=== PATIENT | female | born 1960 | race Caucasian/White ===

== ENCOUNTER 2016-06-01 13:51 | Outpatient (CLI) | payer OTHER ==
[2016-03-23 19:46] VITALS: BMI 53.2
[2016-06-01 14:42] LABS: BASOPHILS # (AUTO) 0.1 K/uL (0-0.2); BASOPHILS % (AUTO) 0.6 % (0.0-3.0); EOSINOPHILS # (AUTO) 0.2 K/ul (0.0-0.7); EOSINOPHILS % (AUTO) 1.6 % (0.0-7.0); HEMATOCRIT 49.8 % (37.0-47.0); HEMOGLOBIN 16.7 g/dl (12.0-16.0); IMMATURE GRANULOCYTE % (AUTO) 0.9 % (0.0-5.0); LYMPHOCYTES # (AUTO) 2.5 K/uL (0.60-3.4); LYMPHOCYTES % (AUTO) 23.8 (10.0-50.0); MEAN CORPUSCULAR HEMOGLOBIN 29.6 pg (27.0-31.0); MEAN CORPUSCULAR HGB CONC 33.5 (31.8-35.4); MEAN CORPUSCULAR VOLUME 88.1 fl (81.0-99.0); MONOCYTES # (AUTO) 0.6 K/uL (0.4-2.0); MONOCYTES % (AUTO) 5.5 (0-10); NEUTROPHILS # (AUTO) 7.2 K/ul (2.0-6.9); NEUTROPHILS % (AUTO) 67.6; PLATELET COUNT 195 10^3/uL (140-440); RED BLOOD COUNT 5.65 10^6/ul (4.20-5.40); WHITE BLOOD COUNT 10.57 K/ul (4.6-10.2)
[2016-06-01 15:20] LABS: ALBUMIN 3.8 g/dL (3.4-5.0); ALBUMIN/GLOBULIN RATIO 1.12; ANION GAP 15.4; BILIRUBIN,TOTAL 0.49 mg/dL (0.00-1.20); BUN/CREATININE RATIO 18.82; CALCIUM 9.4 mg/dL (8.2-10.2); CHOL/HDL RATIO 5.8 (4.5-5.5); CREATININE 0.85 mg/dL (0.60-1.30); POTASSIUM 4.4 mmol/L (3.5-5.10); TOTAL PROTEIN 7.2 g/dL (6.4-8.2)
== END 2016-06-01 13:52 | disposition home or self-care (01) ==
LOC: LAB 13:51
PROVIDERS: ATTEND Nurse Practitioner Family
DX: E78.5 Hyperlipidemia, unspecified (principal); E11.9 Type 2 diabetes mellitus without complications; F32.9 Major depressive disorder, single episode, unspecified; D58.2 Other hemoglobinopathies; R71.8 Other abnormality of red blood cells; R30.9 Painful micturition, unspecified; Z20.5 Contact with and (suspected) exposure to viral hepatitis
CPT/HCPCS: 36415; 80053; 80061; 83036; 85025

== ENCOUNTER 2016-06-09 09:38 | Outpatient (CLI) | payer OTHER ==
[2016-03-23 19:46] VITALS: BMI 53.2
--- NOTE | 2016-06-09 10:49 | US ---
EXAM: Ultrasound abdomen limited right upper quadrant HISTORY: Abnormal levels of other serum enzymes COMPARISON: None TECHNIQUE: Limited ultrasound abdomen right upper quadrant was performed FINDINGS: Visualized portion pancreas appears normal. Portions of the pancreas obscured secondary to bowel gas shadowing. Liver is mildly enlarged. Liver is diffusely increased in echogenicity. Ma in portal vein patent with normal direction of flow. Patient status post cholecystectomy. Mild dila tion common bile duct measuring 0.7 cm with distal common bile duct not visualized. Right kidney zeina sures 12.1 cm in length without hydronephrosis. IMPRESSION: 1. Hepatomegaly. Echogenic liver, consistent with hepatic steatosis and/or hepatic parenchymal dis ease. 2. Status post cholecystectomy. Mild dilation common bile duct is probably postsurgical. Findings can be correlate with liver function tests.
== END 2016-06-09 09:39 | disposition home or self-care (01) ==
LOC: RAD 09:38
PROVIDERS: ATTEND Nurse Practitioner Family
DX: R74.8 Abnormal levels of other serum enzymes (principal); R16.0 Hepatomegaly, not elsewhere classified
CPT/HCPCS: 36415; 80074

== ENCOUNTER 2016-07-10 11:53 | Outpatient (CLI) ==
[2016-03-23 19:46] VITALS: BMI 53.2
[2016-07-10 12:17] LABS: BASOPHILS # (AUTO) 0.1 K/uL (0-0.2); BASOPHILS % (AUTO) 0.6 % (0.0-3.0); EOSINOPHILS # (AUTO) 0.2 K/ul (0.0-0.7); EOSINOPHILS % (AUTO) 1.3 % (0.0-7.0); HEMATOCRIT 47.1 % (37.0-47.0); HEMOGLOBIN 15.8 g/dl (12.0-16.0); IMMATURE GRANULOCYTE % (AUTO) 1.2 % (0.0-5.0); LYMPHOCYTES # (AUTO) 2.5 K/uL (0.60-3.4); LYMPHOCYTES % (AUTO) 17.3 (10.0-50.0); MEAN CORPUSCULAR HEMOGLOBIN 29.8 pg (27.0-31.0); MEAN CORPUSCULAR HGB CONC 33.5 (31.8-35.4); MEAN CORPUSCULAR VOLUME 88.9 fl (81.0-99.0); MONOCYTES # (AUTO) 0.7 K/uL (0.4-2.0); MONOCYTES % (AUTO) 5.1 (0-10); NEUTROPHILS # (AUTO) 10.7 K/ul (2.0-6.9); NEUTROPHILS % (AUTO) 74.5; PLATELET COUNT 182 10^3/uL (140-440); WHITE BLOOD COUNT 14.35 K/ul (4.6-10.2)
[2016-07-10 12:39] LABS: ALBUMIN 3.3 g/dL (3.4-5.0); ANION GAP 14.6; BILIRUBIN,TOTAL 0.26 mg/dL (0.00-1.20); BUN/CREATININE RATIO 22.09; CALCIUM 9.1 mg/dL (8.2-10.2); CHOL/HDL RATIO 4.6 (4.5-5.5); CREATININE 0.86 mg/dL (0.60-1.30); POTASSIUM 4.6 mmol/L (3.5-5.10); TOTAL PROTEIN 6.6 g/dL (6.4-8.2)
--- NOTE | 2016-07-10 12:56 | DI ---
EXAM: Chest two view, frontal and lateral views. HISTORY: Respiratory disorder. COMPARISON: 05/19/2014. FINDINGS: The heart size is normal. There is no pulmonary vascular congestion. The lungs are sheyla r. No pleural effusion or pneumothorax is seen. No acute osseous abnormality identified. Since prior study, there has been no significant interval change. IMPRESSION: No acute cardiopulmonary process.
--- NOTE | 2016-07-10 12:57 | DI ---
EXAM: Supine abdominal radiograph. HISTORY: Back pain. COMPARISON: CT 03/23/2016. FINDINGS: Cholecystectomy clips noted. Phleboliths noted in the lower abdomen and pelvis. Large a mount of stool present in the colon. No dilated bowel loops are seen. No soft tissue masses identi fied. Degenerative changes present in the spine. IMPRESSION: No acute radiographic abnormality of the abdomen.
== END 2016-07-10 11:54 | disposition home or self-care (01) ==
LOC: RAD 11:53
PROVIDERS: ATTEND Nurse Practitioner Family
DX: M54.89 Other dorsalgia (principal); E11.9 Type 2 diabetes mellitus without complications; I10 Essential (primary) hypertension; J98.8 Other specified respiratory disorders; Z72.0 Tobacco use
CPT/HCPCS: 36415; 80053; 80061; 83036; 85025

== ENCOUNTER 2016-11-07 12:12 | Outpatient (CLI) ==
[2016-03-23 19:46] VITALS: BMI 53.2
--- NOTE | 2016-11-07 13:08 | US ---
Exam: Gutierrez-scale and color Doppler ultrasonographic evaluation of the right lower extremity. Comparison: None available. Reason for exam: 1 month of thigh pain. FINDINGS: There is spontaneous flow with adequate compression and respiratory augmentation seen in t he right common femoral, greater saphenous, profunda, superficial femoral, popliteal, peroneal, post erior tibial, and anterior tibial veins. Impression: No ultrasonographic evidence of deep venous thrombus in the right lower extremity.
[2016-11-07 13:22] LABS: BASOPHILS # (AUTO) 0.1 K/uL (0-0.2); BASOPHILS % (AUTO) 0.7 % (0.0-3.0); EOSINOPHILS # (AUTO) 0.2 K/ul (0.0-0.7); EOSINOPHILS % (AUTO) 1.9 % (0.0-7.0); HEMATOCRIT 45.4 % (37.0-47.0); HEMOGLOBIN 15.7 g/dl (12.0-16.0); IMMATURE GRANULOCYTE % (AUTO) 1.1 % (0.0-5.0); LYMPHOCYTES # (AUTO) 2.3 K/uL (0.60-3.4); LYMPHOCYTES % (AUTO) 18.9 (10.0-50.0); MEAN CORPUSCULAR HEMOGLOBIN 30.7 pg (27.0-31.0); MEAN CORPUSCULAR HGB CONC 34.6 (31.8-35.4); MEAN CORPUSCULAR VOLUME 88.7 fl (81.0-99.0); MONOCYTES # (AUTO) 0.7 K/uL (0.4-2.0); MONOCYTES % (AUTO) 5.8 (0-10); NEUTROPHILS # (AUTO) 8.6 K/ul (2.0-6.9); NEUTROPHILS % (AUTO) 71.6; PLATELET COUNT 175 10^3/uL (140-440); RED BLOOD COUNT 5.12 10^6/ul (4.20-5.40); WHITE BLOOD COUNT 11.98 K/ul (4.6-10.2)
[2016-11-07 13:51] LABS: D-DIMER 321.98 ng/mL (<500)
[2016-11-07 14:04] LABS: ALBUMIN 3.8 g/dL (3.4-5.0); ALBUMIN/GLOBULIN RATIO 1.23; BILIRUBIN,TOTAL 0.49 mg/dL (0.00-1.20); BUN/CREATININE RATIO 18.18; CALCIUM 9.2 mg/dL (8.2-10.2); CHOL/HDL RATIO 4.4 (4.5-5.5); CREATININE 0.77 mg/dL (0.60-1.30); TOTAL PROTEIN 6.9 g/dL (6.4-8.2)
== END 2016-11-07 12:13 | disposition home or self-care (01) ==
LOC: RAD 12:12
PROVIDERS: ATTEND Nurse Practitioner Family
DX: M79.604 Pain in right leg (principal); E11.9 Type 2 diabetes mellitus without complications; I10 Essential (primary) hypertension; D75.1 Secondary polycythemia; I25.119 Atherosclerotic heart disease of native coronary artery with unspecified angina pectoris; M19.90 Unspecified osteoarthritis, unspecified site; E66.9 Obesity, unspecified; Z86.718 Personal history of other venous thrombosis and embolism; F17.200 Nicotine dependence, unspecified, uncomplicated
CPT/HCPCS: 36415; 80053; 80061; 83036; 85025; 85379

== ENCOUNTER 2016-11-20 12:58 | Outpatient (CLI) ==
[2016-03-23 19:46] VITALS: BMI 53.2
[2016-11-20] MEDS ORDERED: ALBUTEROL 0.083% NEB NEB STA (13:31)
== END 2016-11-20 12:59 | disposition home or self-care (01) ==
LOC: CAR 12:58
PROVIDERS: ATTEND Nurse Practitioner Family
DX: R06.02 Shortness of breath (principal)
CPT/HCPCS: 94640

== ENCOUNTER 2016-11-23 12:52 | Outpatient (CLI) ==
[2016-03-23 19:46] VITALS: BMI 53.2
--- NOTE | 2016-11-23 13:22 | CT ---
EXAM: CT chest without contrast. HISTORY: Tobacco use. Chest pain for 2 days. COMPARISON: None available. TECHNIQUE: Multiple axial images of the chest were obtained without intravenous contrast. Images w ere reformatted in the sagittal and coronal planes. FINDINGS: Nonenlarged mediastinal and axillary lymph nodes are present. Evaluation for lymphadenop athy is limited by lack of intravenous contrast. Heart size is normal. There is no pericardial eff usion. Coronary artery calcifications noted. There are multiple noncalcified nodules present throughout both lungs, measuring up to 0.5 cm in the left lower lobe on axial image 30 with other nodules in the left lung noted on axial images 11, 13, 16, 17, 24, 25, 27, 28, 37 and 45. Right lung nodules seen on axial images 15, 17, 21, 22, 23, 26, 29, 31, 36 and 37. Question centrilobular nodules in the upper lobes. No consolidation, pleural effusion or pneumothorax identified. No acute abnormality identified in the upper abdomen. Degenerative changes present in the spine IMPRESSION: 1. Multiple bilateral micronodules. 2. Suspect upper lobe centrilobular nodules suggesting small airways inflammation. 3. Follow-up chest CT in 3 months recommended to assess for stability.
== END 2016-11-23 12:53 | disposition home or self-care (01) ==
LOC: RAD 12:52
PROVIDERS: ATTEND Nurse Practitioner Family
DX: I10 Essential (primary) hypertension (principal); Z72.0 Tobacco use

== ENCOUNTER 2017-03-06 10:38 | Outpatient (CLI) ==
[2016-12-22 14:14] VITALS: BMI 53.2
[2017-03-06 10:58] LABS: BASOPHILS # (AUTO) 0.1 K/uL (0-0.2); BASOPHILS % (AUTO) 0.3 % (0.0-3.0); EOSINOPHILS # (AUTO) 0.1 K/ul (0.0-0.7); EOSINOPHILS % (AUTO) 0.7 % (0.0-7.0); HEMATOCRIT 44.1 % (37.0-47.0); LYMPHOCYTES # (AUTO) 2.4 K/uL (0.60-3.4); LYMPHOCYTES % (AUTO) 13.7 (10.0-50.0); MEAN CORPUSCULAR HEMOGLOBIN 30.3 pg (27.0-31.0); MEAN CORPUSCULAR VOLUME 89.1 fl (81.0-99.0); MONOCYTES # (AUTO) 0.9 K/uL (0.4-2.0); MONOCYTES % (AUTO) 5.2 (0-10); NEUTROPHILS % (AUTO) 79.1; PLATELET COUNT 171 10^3/uL (140-440); RED BLOOD COUNT 4.95 10^6/ul (4.20-5.40); WHITE BLOOD COUNT 17.76 K/ul (4.6-10.2)
--- NOTE | 2017-03-06 11:05 | DI ---
EXAM: Two views of the chest. History: Bronchitis. Comparison: Chest radiograph 07/10/[address] 11/23/2016 Findings: Heart size is within normal limits. Question early right lower lobe infiltrate. No appre ciable pleural fluid and no pneumothorax. No acute osseous abnormalities. Impression: Question early right lower lobe infiltrate.
[2017-03-06 11:24] LABS: ALBUMIN 3.4 g/dL (3.4-5.0); ALBUMIN/GLOBULIN RATIO 0.89; BILIRUBIN,TOTAL 0.68 mg/dL (0.00-1.20); BUN/CREATININE RATIO 12.67; CALCIUM 9.6 mg/dL (8.2-10.2); CHOL/HDL RATIO 4.2 (4.5-5.5); CREATININE 0.71 mg/dL (0.60-1.30); TOTAL PROTEIN 7.2 g/dL (6.4-8.2)
== END 2017-03-06 10:39 | disposition home or self-care (01) ==
LOC: RAD 10:38
PROVIDERS: ATTEND Nurse Practitioner Family
DX: J40 Bronchitis, not specified as acute or chronic (principal); E11.9 Type 2 diabetes mellitus without complications; I10 Essential (primary) hypertension; E66.9 Obesity, unspecified; F32.9 Major depressive disorder, single episode, unspecified; F31.9 Bipolar disorder, unspecified
CPT/HCPCS: 36415; 80053; 80061; 83036; 85025

== ENCOUNTER 2017-03-08 09:59 | Outpatient (CLI) ==
[2016-12-22 14:14] VITALS: BMI 53.2
--- NOTE | 2017-03-08 11:22 | CT ---
EXAM: CT of the chest with and without contrast History: Bronchitis. Comparison: Chest CT 11/23/2016 Technique: Multiplanar CT images through the thorax were obtained with and without the administratio n of IV contrast Findings: Heart size is normal. Coronary calcifications. Great vessels are unremarkable. No axill willard adenopathy. No pathologically enlarged mediastinal or hilar lymph nodes. No pneumothorax and no pleural fluid. There are new right perihilar and right lower lobe micronodules with surrounding kaylyn und-glass change. There also new micronodules within the right middle lobe. No pleural fluid and no pneumothorax. Within the visualized upper abdomen, status post cholecystectomy. Liver might be fatty. No acute os seous abnormalities. Degenerative changes of the thoracic spine. Impression: 1. New micronodules and ground-glass infiltrates within the right lung most compatible with infectiou s or inflammatory process. Recommend follow-up chest CT in 3-6 months to document resolution. 2. Coronary artery disease. 3. Probable fatty liver.
--- NOTE | 2017-03-09 11:55 | MAMMO ---
EXAM: Bilateral digital screening mammogram (2-D and 3-D) Comparison: Bilateral mammogram 08/15/2013 Findings: MLO and CC views of bilateral breasts demonstrate scattered fibroglandular breast parenchy ma. CAD was reviewed by the radiologist. Tomosynthesis was performed. There are no dominant masses , no suspicious microcalcifications and no architectural distortions. Impression: Benign stable mammogram. Recommend followup routine screening mammography in 1 year. BIRADS 1
== END 2017-03-08 10:00 | disposition home or self-care (01) ==
LOC: RAD 09:59
PROVIDERS: ATTEND Nurse Practitioner Family
DX: Z12.31 Encounter for screening mammogram for malignant neoplasm of breast (principal); R93.8 Abnormal findings on diagnostic imaging of other specified body structures
CPT/HCPCS: 77067

== ENCOUNTER 2017-07-02 10:15 | Outpatient (CLI) ==
[2016-12-22 14:14] VITALS: BMI 53.2
--- NOTE | 2017-07-02 11:48 | CT ---
EXAM: CT THORAX HISTORY: Abnormal CT, follow-up. Nodules. TECHNIQUE: CT thorax without intravenous contrast. Multiplanar images presented. Coronal and sagit aliyah re-formations. COMPARISON: 03/08/2017 FINDINGS: Heart size is normal. No pericardial effusion. There is mild atherosclerotic disease. No evidence of mediastinal / hilar lymphadenopathy or hilar mass within limits of this unenhanced exam. Lungs reveal resolution of previously seen patchy mid to lower right lung pneumonia. The right-sided micro nodules as previously described appear grossly stable. These were newly developed according t o prior report. On today's exam, there are newly developed left-sided pulmonary nodules most noted i n the upper lung zones and measuring up to about 4.6 mm. Some previously seen left-sided nodules appe ar stable. No acute infiltrates or pneumonia is currently seen. There is no vascular congestion or p leural fluid. The bones reveal bridging anterior and lateral osteophytic spurring of the thoracic spine. IMPRESSION: 1. Resolved patchy pneumonia in the right lung since previous exam. 2. Previously described micro nodules within the right lung are grossly stable. Some of the left-si ded nodules are stable and others new. It is uncertain whether this is an ongoing inflammatory proce ss or metastatic disease. Correlate clinically. These too small to be evaluated by PET / CT and fol low up standard CT of the chest is recommended.
== END 2017-07-02 10:16 | disposition home or self-care (01) ==
LOC: RAD 10:15
PROVIDERS: ATTEND Nurse Practitioner Family
DX: R93.8 Abnormal findings on diagnostic imaging of other specified body structures (principal)

== ENCOUNTER 2017-07-13 21:39 | Inpatient (IN) ==
[2017-07-13 21:50] VITALS: BMI 56.0
[2017-07-13] MEDS ORDERED: SODIUM CHLORIDE 1,000 ML IV STA (22:04)
[2017-07-13] MEDS ORDERED: VANCOMYCIN 1,000 MG in SODIUM CHLORIDE 200 ML IV STA (22:25)
--- NOTE | 2017-07-13 22:49 | CT ---
EXAM: CT abdomen pelvis without intravenous contrast 07/13/2017. Sagittal and coronal reformatted i mages obtained HISTORY: Lower abdominal swelling. Cellulitis. Question abscess COMPARISON: 03/23/2016 FINDINGS: The liver shows no acute abnormality. The gallbladder has been removed. The adrenal glands and kidneys show no acute abnormality. There is no urinary obstruction. The urin willard bladder is unremarkable. The spleen pancreas show no acute process. No bowel obstruction. There is no evidence of appendicit is. No free air or free fluid within the abdomen or pelvis. Skin thickening and subcutaneous edema at the level of the anterior lower pelvis. This may represent edema/cellulitis. There is no underlying fluid collection or abscess. IMPRESSION: Subcutaneous edema with adjacent skin thickening at the level of the anterior lower pelv is. This may represent edema/cellulitis. There is no underlying fluid collection.
[2017-07-13] MEDS ORDERED: VANCOMYCIN ONE (22:55)
[2017-07-13] MEDS ORDERED: HUMULIN R IVP STA (23:26)
[2017-07-13] MEDS ORDERED: ALBUTEROL 0.083% NEB NEB STA (23:32)
--- NOTE | 2017-07-13 23:36 | ED.PDOC ---
General ED Provider: Dr. TIFFANY JACOBSEN-ER Chief Complaint: Abscess Stated Complaint: mitch got this red place and its getting larger and its hurting- --im running fever Time Seen by Physician: 21:45 Mode of Arrival: Walk-In Information Source: Patient Exam Limitations: No limitations Primary Care Provider: RAMON PENN Nursing and Triage Documentation Reviewed and Agree: Yes Reviewed sepsis parameters & appropriate labs ordered?: Yes System Inflammatory Response Syndrome: Not Applicable Sepsis Protocol: For patient's 13 years and over: Temp is 96.8 and below OR 101 and greater Pulse >90 BPM Resp >20/minute Acutely Altered Mental Status Are patient's symptoms suggestive of a new infection, such as: -Pneumonia -Skin, Soft Tissue -Endocarditis -UTI -Bone, Joint Infection -Implantable Device -Acute Abdominal Infection -Wound Infection -Meningitis -Blood Stream Catheter Infection -Unknown Skin Complaint Exam - Skin Rash/Itching Complaint/Exam Onset/Duration: 2 days Symptoms Are: Still present Initial Severity: Mild Current Severity: Mild Location: right lower abdomen Potential Exposures: Reports: Other Aggravating: Reports: None Alleviating: Reports: None Associated Signs and Symptoms: Reports: Fever, Chills. Denies: Difficulty breathing Skin Findings: Present: Maculae, Lesions Differential Diagnoses: Other Review of Systems - Review Of Systems Constitutional: Reports: Chills, Fever Eyes: Reports: No symptoms Ears, Nose, Mouth, Throat: Reports: No symptoms Respiratory: Reports: No symptoms Cardiac: Reports: No symptoms GI: Reports: No symptoms : Reports: No symptoms Musculoskeletal: Reports: No symptoms Skin: Reports: Rash Neurological: Reports: No symptoms Endocrine: Reports: No symptoms Hematologic/Lymphatic: Reports: No symptoms All Other Systems: Reviewed and Negative Past Medical History - Past Medical History Previously Healthy: No Endocrine: Reports: DM 2 Cardiovascular: Reports: Hypertension Respiratory: Reports: None Hematological: Reports: Anemia Gastrointestinal: Reports: GERD Genitourinary: Reports: None Neuro/Psych: Reports: Anxiety, Depression Musculoskeletal: Reports: Back Pain, Joint Pain Cancer: Reports: None Last Menstrual Period: PT HAS HAD A HYSTERECTOMY - Surgical History General Surgical History: Reports: None - Family History Family History: Reports: None - Social History Smoking Status: Heavy tobacco smoker, Current every day smoker Hx Substance Use: No Alcohol Screening: None - Immunizations Tetanus Shot up to Date: Yes Physical Exam - Physical Exam Appearance: Well-appearing, No pain distress, Well-nourished Pain Distress: Moderate Eyes: ROM, EOMI, Conjunctiva clear ENT: Ears normal, Nose normal, Oropharynx normal Neck: Supple Respiratory: Airway patent, Breath sounds clear, Breath sounds equal, Respirations nonlabored Cardiovascular: RRR, Pulses normal, No rub, No murmur GI/: Soft, Nontender, No masses, Bowel sounds normal, No Organomegaly Musculoskeletal: Normal strength Skin: Warm (noted erythema over lower abdomen with induration--no evidence of cellulitis) Neurological: Sensation intact, Motor intact, Reflexes intact, Cranial nerves intact, Alert, Oriented Psychiatric: Affect appropriate, Mood appropriate Interpretation - Radiology Interpretation Radiology Interpretation By: Radiologist Radiology Results: Positive Exam Interpreted: CT Scan - EKG Interpretation Time of EKG #1: 00:26 Rate: Normal Rhythm: Sinus Ectopy: None [place]: NL ST Segment: Normal Interpretation: nsr Physician Notification - Case Discussed Physician Notified: dr tierney notified ---he told me to contact on-call md-- Physician Notified: called dr reid--agreed to admit Time of Notification: 00:46 Critical Care Note - Critical Care Note Total Time (mins): 0 Course - Course Hematology/Chemistry: 07/13/17 22:16 07/13/17 22:16 Orders, Labs, Meds: Lab Review 07/13/17 07/13/17 07/13/17 22:16 22:16 22:50 WBC 20.57 H RBC 5.14 Hgb 15.5 Hct 45.4 MCV 88.3 MCH 30.2 MCHC 34.1 RDW Coeff of Tia 13.1 Plt Count 155 Immature Gran % (Auto) 0.7 Neut % (Auto) 83.9 Lymph % (Auto) 9.3 L Bent % (Auto) 5.3 Eos % (Auto) 0.5 Baso % (Auto) 0.3 Immature Gran # (Auto) 0.1 Neut # (Auto) 17.3 H Lymph # (Auto) 1.9 Bent # (Auto) 1.1 Eos # (Auto) 0.1 Baso # (Auto) 0.1 ESR 13 Puncture Site O2 Saturation ABG pH ABG pCO2 ABG pO2 ABG HCO3 ABG Total CO2 ABG Base Excess Aren Test FiO2 % Sodium 136 Potassium 3.9 Chloride 97 L Carbon Dioxide 26 Anion Gap 16.9 BUN 11 Creatinine 0.97 Estimated GFR (MDRD) 60.00 BUN/Creatinine Ratio 11.34 Glucose 441 H Calcium 9.1 Total Bilirubin 0.4 AST 8 L ALT 18 Alkaline Phosphatase 120 H Total Protein 6.5 Albumin 3.1 L Globulin 3.4 Albumin/Globulin Ratio 0.91 Urine Color Yellow Urine Clarity Clear Urine pH 5.5 Ur Specific Garibaldi 1.010 Urine Protein Negative Urine Glucose (UA) 2+ Urine Ketones Trace Urine Blood Trace-intact Urine Nitrite Negative Urine Bilirubin Negative Urine Urobilinogen 0.2 Ur Leukocyte Esterase Negative Urine Microscopic RBC 2-5 Urine Microscopic WBC 0-2 Ur Squamous Epith Cells 2-5 Urine Bacteria Trace 07/13/17 23:25 WBC RBC Hgb Hct MCV MCH MCHC RDW Coeff of Tia Plt Count Immature Gran % (Auto) Neut % (Auto) Lymph % (Auto) Bent % (Auto) Eos % (Auto) Baso % (Auto) Immature Gran # (Auto) Neut # (Auto) Lymph # (Auto) Bent # (Auto) Eos # (Auto) Baso # (Auto) ESR Puncture Site Rbrach O2 Saturation 96.0 ABG pH 7.416 ABG pCO2 41.9 ABG pO2 82.0 L ABG HCO3 26.9 H ABG Total CO2 28 ABG Base Excess 2 Aren Test Pending FiO2 % 21.0 Sodium Potassium Chloride Carbon Dioxide Anion Gap BUN Creatinine Estimated GFR (MDRD) BUN/Creatinine Ratio Glucose Calcium Total Bilirubin AST ALT Alkaline Phosphatase Total Protein Albumin Globulin Albumin/Globulin Ratio Urine Color Urine Clarity Urine pH Ur Specific Garibaldi Urine Protein Urine Glucose (UA) Urine Ketones Urine Blood Urine Nitrite Urine Bilirubin Urine Urobilinogen Ur Leukocyte Esterase Urine Microscopic RBC Urine Microscopic WBC Ur Squamous Epith Cells Urine Bacteria Orders Category Date Time Status ABG DRAW REQUEST Stat CARDIO 07/13/17 23:25 Completed EKG-(ED ONLY) Stat CARDIO 07/13/17 23:37 Completed NEBULIZER TREATMENT Stat CARDIO 07/13/17 23:32 Ordered BLOOD GLUCOSE MONITORING 0630,1100,1700,2100 CARE 07/13/17 23:26 Active ACCUCHECK (ED) [ED ACCUCHECK ASSESSMENT] .ONCE EMERGENCY 07/13/17 22:00 Active ED IV/MEDIPORT/POWERPORT .ONCE EMERGENCY 07/13/17 22:04 Active ARTERIAL BLOOD GAS [ABG] Stat LAB 07/13/17 23:25 Results BLOOD CULTURE (ED ONLY) Stat LAB 07/13/17 22:16 Received CBC W/ AUTO DIFF Stat LAB 07/13/17 22:16 Completed COMPREHENSIVE METABOLIC PANEL Stat LAB 07/13/17 22:16 Completed ESR Stat LAB 07/13/17 22:16 Completed URINALYSIS C & S IF INDICATED Stat LAB 07/13/17 22:50 Completed 0.9 % Sodium Chloride [Saline Flush] MEDS 07/13/17 22:04 Ordered 1 syr IVF PRN PRN Albuterol Sulfate 0.083% Neb [Albuterol 0.083% Neb] MEDS 07/13/17 23:32 Discontinued 1 vial NEB ONCE STA Insulin Regular, Human [Humulin R] MEDS 07/13/17 23:26 Discontinued 13 unit IVP ONCE STA Sodium Chloride 0.9% [Sodium Chloride] 1,000 ml MEDS 07/13/17 22:04 Active IV 100 mls/hr Vancomycin HCl [Vancomycin] MEDS 07/13/17 22:55 Discontinued 1,000 mg .ROUTE .STK-MED ONE Vancomycin HCl [Vancomycin] 1,000 mg MEDS 07/13/17 22:25 Discontinued 0.9 % Sodium Chloride [Sodium Chloride] [address] ABDOMEN/PELVIS WO CONTRAST Stat RADS 07/13/17 22:04 Completed CXR [CHEST, 1V AP ONLY] Stat RADS 07/13/17 23:32 Taken Medications Generic Name Dose Route Start Last Admin Trade Name Freq PRN Reason Stop Dose Admin Sodium Chloride 1,000 mls @ 100 mls/hr 07/13/17 22:04 07/13/17 22:50 Sodium Chloride IV 07/14/17 08:03 100 mls/hr .Q10H STA Administration Sodium Chloride 1 syr 07/13/17 22:04 07/13/17 22:51 Saline Flush IVF 1 syr PRN PRN Administration To flush IV Discontinued Medications Generic Name Dose Route Start Last Admin Trade Name Freq PRN Reason Stop Dose Admin Albuterol Sulfate 1 vial 07/13/17 23:32 Albuterol 0.083% Neb NEB 07/13/17 23:33 ONCE STA Vancomycin HCl 1,000 mg/ 200 mls @ 100 mls/hr 07/13/17 22:25 07/13/17 23:07 Sodium Chloride IV 07/14/17 00:24 100 mls/hr ONCE STA Administration Insulin Human Regular 13 unit 07/13/17 23:26 07/13/17 23:36 Humulin R IVP 07/13/17 23:27 13 unit ONCE STA Administration Vital Signs: Temp Pulse Resp BP Pulse Ox 07/13/17 21:40 98.7 F 107 H 24 164/96 H 94 L Departure - Departure Time of Disposition: 00:46 Disposition: ADMITTED INPATIENT Discharge Problem: Cellulitis Qualifiers: Site of cellulitis: unspecified site Qualified Code(s): L03.90 - Cellulitis, unspecified Instructions: Cellulitis (ED) Condition: Good Pt referred to PMD for follow-up: Yes IPMP verified?: No Allergies/Adverse Reactions: Allergies fluoxetine HCl [From Prozac] Allergy (Verified 07/13/17 21:48) acetaminophen [From Lortab] Adverse Reaction (Verified 07/13/17 21:48) aspirin Adverse Reaction (Verified 07/13/17 21:48) codeine Adverse Reaction (Verified 07/13/17 21:48) duloxetine HCl [From Cymbalta] Adverse Reaction (Verified 07/13/17 21:48) hydrochlorothiazide [From Dyazide] Adverse Reaction (Verified 07/13/17 21:48) hydrocodone bitartrate [From Lortab] Adverse Reaction (Verified 07/13/17 21:48) meperidine HCl [From Demerol] Adverse Reaction (Verified 07/13/17 21:48) propoxyphene napsylate [From Darvocet-N] Adverse Reaction (Verified 07/13/17 21: 48) topiramate [From Topamax] Adverse Reaction (Verified 07/13/17 21:48) tramadol HCl [From Ultram] Adverse Reaction (Verified 07/13/17 21:48) trandolapril [From Tarka] Adverse Reaction (Verified 07/13/17 21:48) triamterene [From Dyazide] Adverse Reaction (Verified 07/13/17 21:48) verapamil HCl [From Tarka] Adverse Reaction (Verified 07/13/17 21:48) DIAZIDE Adverse Reaction (Uncoded 07/13/17 21:48) Home Medications: Ambulatory Orders Lovastatin [Mevacor] 40 mg PO BEDTIME 11/19/13 Metoprolol Tartrate [Lopressor] 100 mg PO BID 11/19/13 Albuterol Sulfate [Proventil Hfa] 2 puff IH BID PRN 11/04/15 Aspirin [Aspirin EC] 81 mg PO DAILYWM 11/04/15 Clopidogrel Bisulfate [Plavix] 75 mg PO DAILY 11/04/15 Pramipexole Di-HCl [Mirapex] 1 mg PO BID 03/23/16 [place]-3 Fatty Acids/Fish Oil [[place] 3 1,000 Mg Softgel] 1 each PO BID 12/29/16 Citalopram Hydrobromide [Celexa] 60 mg PO DAILY 07/13/17 Hydroxyzine HCl 50 mg PO BEDTIME 07/13/17 Lamotrigine [Lamictal] 75 mg PO BEDTIME 07/13/17 Disposition Discussed With: Patient
[2017-07-14] MEDS ORDERED: TYLENOL PO PRN (00:48)
[2017-07-14] MEDS ORDERED: NITROSTAT SL PRN (00:52)
[2017-07-14] MEDS ORDERED: ALBUTEROL 0.083% NEB NEB PRN (00:52)
[2017-07-14] MEDS: SODIUM CHLORIDE 1,000 ML IV SCH ×2 (02:12→15:23)
--- NOTE | 2017-07-14 06:49 | DI ---
EXAM: Single AP view of the chest HISTORY: Chronic obstructive pulmonary disease. COMPARISON: Chest x-ray 03/06/[address] chest 07/02/2017 with multiple priors FINDINGS: Cardiomediastinal silhouette is unchanged. There is no pneumothorax or pleural effusion. Lung findings are mildly obscured due to overlying soft tissue. No acute consolidation, nodule or ma ss. The osseous structures are unchanged. IMPRESSION: No acute cardiopulmonary process.
[2017-07-14] MEDS ORDERED: VANCOMYCIN 1,000 MG in SODIUM CHLORIDE 200 ML IV SCH ×2 (07:00→09:00)
[2017-07-14] MEDS ORDERED: VANCOMYCIN 1 GM in SODIUM CHLORIDE 250 ML IV SCH ×2 (08:30→16:00)
[2017-07-14] MEDS: ROCEPHIN 1 GM in SODIUM CHLORIDE 50 ML IV SCH (08:39)
[2017-07-14] MEDS: ASPIRIN EC PO SCH (08:43)
[2017-07-14] MEDS: CELEXA PO SCH (08:43)
[2017-07-14] MEDS: SYMBICORT 80-4.5 MCG INHALER IH SCH ×2 (08:44→20:39)
[2017-07-14] MEDS: FLONASE NAS SCH (08:44)
[2017-07-14] MEDS: GLUCOPHAGE PO SCH ×2 (08:45→16:57)
[2017-07-14] MEDS: HUMALOG SUBCUT SCH ×3 (08:46→20:38)
[2017-07-14] MEDS: LOPRESSOR PO SCH ×2 (08:47→16:57)
[2017-07-14] MEDS: LOVENOX SUBCUT SCH (08:48)
[2017-07-14] MEDS: MIRAPEX PO SCH ×2 (08:48→20:40)
[2017-07-14] MEDS: NEURONTIN PO SCH ×6 (08:49→20:42)
[2017-07-14] MEDS: PLAVIX PO SCH (08:50)
[2017-07-14] MEDS: TRADJENTA PO SCH (08:50)
[2017-07-14] MEDS ORDERED: NON-FORMULARY MEDICATION (Metformin Hcl [Metformin Hcl] 1,000 MG) PO SCH (09:00)
[2017-07-14] MEDS ORDERED: NON-FORMULARY MEDICATION (Gabapentin [Gabapentin] 800 MG) PO SCH (09:00)
[2017-07-14] MEDS ORDERED: INSULIN ASPART 20 UNIT SQ SCH (09:00)
[2017-07-14] MEDS: LANTUS SUBCUT SCH (20:37)
[2017-07-14] MEDS: VANCOMYCIN 1,000 MG in SODIUM CHLORIDE 200 ML IV SCH ×2 (20:39→23:07)
[2017-07-14] MEDS: LAMICTAL PO SCH (20:40)
[2017-07-14] MEDS: ATARAX PO SCH (20:41)
[2017-07-14] MEDS: MEVACOR PO SCH (20:42)
[2017-07-14] MEDS ORDERED: NON-FORMULARY MEDICATION (Hydroxyzine Hcl [Hydroxyzine Hcl] 50 MG) PO SCH (21:00)
[2017-07-15] MEDS: SODIUM CHLORIDE 1,000 ML IV SCH ×2 (00:54→18:28)
[2017-07-15] MEDS: VANCOMYCIN 1,000 MG in SODIUM CHLORIDE 200 ML IV SCH ×3 (04:08→20:43)
[2017-07-15] MEDS: HUMALOG SUBCUT SCH ×3 (08:21→20:43)
[2017-07-15] MEDS: LOVENOX SUBCUT SCH (08:22)
[2017-07-15] MEDS: TORADOL IVP PRN ×2 (08:22→22:05)
[2017-07-15] MEDS: NEURONTIN PO SCH ×6 (08:23→20:45)
[2017-07-15] MEDS: TRADJENTA PO SCH (08:23)
[2017-07-15] MEDS: LOPRESSOR PO SCH ×2 (08:24→17:19)
[2017-07-15] MEDS: MIRAPEX PO SCH ×2 (08:24→20:45)
[2017-07-15] MEDS: ASPIRIN EC PO SCH (08:24)
[2017-07-15] MEDS: GLUCOPHAGE PO SCH ×2 (08:24→17:19)
[2017-07-15] MEDS: CELEXA PO SCH (08:24)
[2017-07-15] MEDS: PLAVIX PO SCH (08:24)
[2017-07-15] MEDS: ROCEPHIN 1 GM in SODIUM CHLORIDE 50 ML IV SCH (08:25)
[2017-07-15] MEDS: SYMBICORT 80-4.5 MCG INHALER IH SCH ×2 (08:25→20:44)
[2017-07-15] MEDS: FLONASE NAS SCH (08:25)
[2017-07-15] MEDS ORDERED: LASIX IVP STA (14:27)
[2017-07-15] MEDS: ALBUTEROL 0.083% NEB NEB SCH (20:10)
[2017-07-15] MEDS: LANTUS SUBCUT SCH (20:44)
[2017-07-15] MEDS: MEVACOR PO SCH (20:45)
[2017-07-15] MEDS: LAMICTAL PO SCH (20:45)
[2017-07-15] MEDS: ATARAX PO SCH (20:45)
[2017-07-16] MEDS: ALBUTEROL 0.083% NEB NEB SCH ×4 (05:36→19:55)
[2017-07-16] MEDS: VANCOMYCIN 1,000 MG in SODIUM CHLORIDE 200 ML IV SCH ×3 (05:50→21:18)
[2017-07-16] MEDS: CELEXA PO SCH (08:09)
[2017-07-16] MEDS: NEURONTIN PO SCH ×6 (08:09→21:20)
[2017-07-16] MEDS: TRADJENTA PO SCH (08:10)
[2017-07-16] MEDS: MIRAPEX PO SCH ×2 (08:10→21:20)
[2017-07-16] MEDS: LOPRESSOR PO SCH ×2 (08:10→18:25)
[2017-07-16] MEDS: ASPIRIN EC PO SCH (08:11)
[2017-07-16] MEDS: GLUCOPHAGE PO SCH ×2 (08:11→18:14)
[2017-07-16] MEDS: ROCEPHIN 1 GM in SODIUM CHLORIDE 50 ML IV SCH (08:11)
[2017-07-16] MEDS: FLONASE NAS SCH (08:12)
[2017-07-16] MEDS: LOVENOX SUBCUT SCH (08:12)
[2017-07-16] MEDS: SYMBICORT 80-4.5 MCG INHALER IH SCH ×2 (08:12→21:18)
[2017-07-16] MEDS: PLAVIX PO SCH (08:15)
[2017-07-16] MEDS: HUMALOG SUBCUT SCH ×3 (09:57→21:01)
--- NOTE | 2017-07-16 13:02 | HP ---
DATE OF SERVICE: 07/14/17 CHIEF COMPLAINT/HISTORY OF PRESENT ILLNESS: Swelling and painful suprapubic area, started two days ago warm to touch, hard to touch. There was a dime sized lesion. The patient started scratching and increasing the size and painful. Came and saw Dr. Galindo in the emergency room. WBC was 20,000. ABG normal. Glucose 441 and bicarb normal Urine negative, trace ketones were present. At that time the patient was admitted to the hospital for the IV antibiotics and the IV fluids for the suprapubic cellulitis, defused with history of diabetes. REVIEW OF SYSTEMS: CONSTITUTIONAL: No fever, no chills. Weakness and tiredness. HEENT: Normal. ENDOCRINE: No weight gain; no weight loss. CVS: No chest pain. No PND, no orthopnea. No shortness of breath. No PND, no orthopnea. RESPIRATORY: No cough, no congestion. No hemoptysis. GI: No nausea, no vomiting. No abdominal pain. No melena. : No hematuria. No polyuria. Uncontrolled sugars. MUSCULOSKELETAL: No joint swelling. PSYCHIATRIC: Not anxious. No depression. No suicidal thoughts. No homicidal thoughts. SKIN: Intact, no open lesions. Redness, swelling, pain. PAST MEDICAL HISTORY: Hypertension Dyslipidemia Coronary artery disease, October 2016 status post stent Deep vein thrombosis COPD on CPAP Sleep apnea uses BIPAP GERD Diverticulosis Hiatal hernia Osteoarthritis DJD Spine Bipolar Depression Anxiety PAST SURGICAL HISTORY: Hysterectomy Cholecystectomy Bilateral tubal ligation Oral surgery PERSONAL HISTORY: Family history is significant for the [place], hypertension type 2 diabetes, lung cancer. The patient does smoke, no alcohol and drugs. MEDICATIONS: Lopressor Mevacor Proventil Aspirin Plavix Mirapex [place] 3 acid Albuterol Nystatin Insulin Flonase Neurontin Tradjenta Symbicort Metformin Insulin Aspart Hydroxyzine Citalopram Lamotrigine ALLERGIES: Fluoxetine Tylenol Codeine Duloxetine PHYSICAL EXAMINATION: V/S: Blood pressure 144/68, respiratory rate 18, heart rate 104, temperature 99 and saturation 92% on room air. HEENT: Atraumatic, normocephalic. No scleral icterus. Mucosa dry. NECK: Supple. No JVD, no bruit. No lymphadenopathy. No thyromegaly. HEART: S1, S2 normal. No murmur. No cyanosis or clubbing. No ascites. LUNGS: Clear to auscultation. No rales or rhonchi. ABDOMEN: Soft, nontender. Bowel sounds are active. No CVA tenderness. No rigidity or guarding. Suprapubic area just below the umbilicus defused red, swollen, tender and one big swelling where there is know 1-2 cm circular area. No drainage abscess. EXTREMITIES: No pedal edema. No cyanosis or clubbing MUSCULOSKELETAL: Normal joints, no swelling. NEUROLOGIC: The patient is SKIN: Intact; no open lesions. LYMPHATIC: No lymph nodes palpable. LABS: WBC 20.57, hgb 15.5, hct 45.5, plt count 155, sodium 136, potassium 3.9, chloride 97, bicarb 26, BUN 11, creatinine 0.97 and glucose 441. ASSESSMENT: 1. Suprapubic cellulitis 2. Uncontrolled diabetes 3. History of Coronary artery disease 4. Hypertension 5. Diabetes 6. Bipolar 7. Depression PLAN: 1. Admit the patient to the regular floor 2. CBC and CMP today and daily 3. Cardiac enzymes and Troponin 4. IV fluids 5. IV Rocephin and Vancomycin 6. Accu-check with coverage 7. Continue home medications 8. Lovenox for the DVT prophylaxis 9. Daily I&O's TIME SPENT: MORE THAN 70 minutes MTDD
--- NOTE | 2017-07-16 13:18 | PN ---
DATE OF SERVICE: 07/15/17 SUBJECTIVE: The patient's suprapubic area has redness and swelling still present. Complains about the pain almost 8-10. Her WBC is slightly is slightly better. She says that she takes breathing treatments at home and wants them to be started here. REVIEW OF SYSTEMS: CONSTITUTIONAL: No fever, no chills. HEENT: Normal. ENDOCRINE: No weight gain, no weight loss. CVS: No angina symptoms. No CHF symptoms. No palpitations. No atypical chest pain for CAD. No shortness of breath. No PND, no orthopnea. RESPIRATORY: No cough, no hemoptysis. GI: No nausea, no vomiting. No abdominal pain. : No hematuria. No polyuria. MUSCULOSKELETAL: No joint swelling. PSYCHIATRIC: Not anxious. No depression. No suicidal thoughts. No homicidal thoughts. SKIN: Intact. No rash. PHYSICAL EXAMINATION: V/S: Blood pressure 115/60, heart rate 88, respiratory rate 20, temperature 98.5 with saturation 91% on room air. HEENT: Normocephalic, atraumatic. Mucosa dry. NECK: Supple. No JVD, no carotid bruit. No lymphadenopathy. LUNGS: Clear to auscultation. No rales or rhonchi. HEART: S1, S2 normal. No S3. No murmur, gallop or regurgitation. ABDOMEN: Soft, suprapubic area redness, swelling and tender to touch. Small open area on the right upper suprapubic area. No drainage. Bowel sounds active. No rigidity. No rebound or guarding. No CVA tenderness. EXTREMITIES: No pedal edema. No clubbing or cyanosis MUSCULOSKELETAL: No joint swelling. NEUROLOGIC: Awake, alert, oriented times three. No focal deficit. LYMPHATIC: No lymph nodes palpable. SKIN: Intact. LABS: WBC 18.18, hgb 14.1, hct 42.8, plt count 150, sodium 137, potassium 3.6, chloride 98, bicarb 27, BUN 6, creatinine 0.69, glucose 224. ASSESSMENT: 1. Suprapubic severe cellulitis with multiple cyst there 2. Uncontrolled diabetes 3. COPD 4. Depression 5. Peripheral neuropathy 6. Diabetes, on insulin 7. Bipolar 8. Depression PLAN: 1. Continue Vancomycin and Rocephin 2. Start the patient on the Albuterol treatment 3. Oxygen two liter nasal canula 4. Daily I&O's 5. Keep the legs elevated 6. Will give Lasix 40mg IV push TIME SPENT: More than 35 minutes MTDD
[2017-07-16] MEDS: LAMICTAL PO SCH (21:19)
[2017-07-16] MEDS: LANTUS SUBCUT SCH (21:19)
[2017-07-16] MEDS: MEVACOR PO SCH (21:19)
[2017-07-16] MEDS: ATARAX PO SCH (21:20)
[2017-07-17] MEDS: VANCOMYCIN 1,000 MG in SODIUM CHLORIDE 200 ML IV SCH ×3 (05:10→20:37)
[2017-07-17] MEDS: ALBUTEROL 0.083% NEB NEB SCH ×4 (05:36→19:39)
[2017-07-17] MEDS: HUMALOG SUBCUT SCH ×3 (08:52→17:30)
[2017-07-17] MEDS: CELEXA PO SCH (08:53)
[2017-07-17] MEDS: TRADJENTA PO SCH (08:53)
[2017-07-17] MEDS: PLAVIX PO SCH (08:53)
[2017-07-17] MEDS: NEURONTIN PO SCH ×6 (08:53→20:39)
[2017-07-17] MEDS: LOPRESSOR PO SCH ×2 (08:54→17:33)
[2017-07-17] MEDS: MIRAPEX PO SCH ×2 (08:54→20:38)
[2017-07-17] MEDS: ASPIRIN EC PO SCH (08:54)
[2017-07-17] MEDS: LOVENOX SUBCUT SCH (08:55)
[2017-07-17] MEDS: SYMBICORT 80-4.5 MCG INHALER IH SCH ×2 (08:58→20:40)
[2017-07-17] MEDS: GLUCOPHAGE PO SCH ×2 (08:58→17:33)
[2017-07-17] MEDS: FLONASE NAS SCH (08:58)
[2017-07-17] MEDS: ROCEPHIN 1 GM in SODIUM CHLORIDE 50 ML IV SCH (09:08)
--- NOTE | 2017-07-17 14:24 | PN ---
DATE OF SERVICE: 07/16/17 SUBJECTIVE: The suprapubic tenderness and redness is somewhat better. It started draining puss. It has been sent for the culture. Getting IV antibiotic Rocephin and Vancomycin. REVIEW OF SYSTEMS: CONSTITUTIONAL: No fever, no chills. HEENT: Normal. ENDOCRINE: No weight gain, no weight loss. CVS: No angina symptoms. No CHF symptoms. No palpitations. No atypical chest pain for CAD. No shortness of breath. No PND, no orthopnea. RESPIRATORY: No cough, no hemoptysis. GI: No nausea, no vomiting. No abdominal pain. : No hematuria. No polyuria. MUSCULOSKELETAL: No joint swelling. PSYCHIATRIC: Not anxious. No depression. No suicidal thoughts. No homicidal thoughts. SKIN: Intact. No rash. PHYSICAL EXAMINATION: V/S: 92% saturation on room air, blood pressure 133/72, respiratory rate 18, heart rate 92 and temperature 98.1. HEENT: Normocephalic, atraumatic. NECK: Supple. No JVD, no carotid bruit. No lymphadenopathy. LUNGS: Clear to auscultation. No rales or rhonchi. HEART: S1, S2 normal. No S3. No murmur, gallop or regurgitation. ABDOMEN: Soft, nontender. Bowel sounds active. No rigidity. No rebound or guarding. No CVA tenderness. Suprapubic redness and tenderness and swelling is present. On pressing the spot puss is coming out. EXTREMITIES: No pedal edema. No clubbing or cyanosis. A lot of Varicose Veins. MUSCULOSKELETAL: No joint swelling. NEUROLOGIC: Awake, alert, oriented times three. No focal deficit. LYMPHATIC: No lymph nodes palpable. SKIN: Intact. LABS: WBC 18.18, hgb 14.1, hct 42.8, plt count 150. sodium 137, potassium 3.6, chloride 98, bicarb 27, BUN 6, creatinine 0.69 and glucose 224. ASSESSMENT: 1. Suprapubic abscess with defused cellulitis 2. Diabetes 3. Hypertension 4. Dyslipidemia 5. Osteoarthritis 6. DJD spine 7. COPD PLAN: 1. Continue Vancomycin, Rocephin and Toradol for the pain 2. Wet to dry dressing. TIME SPENT: More than 35 minutes MTDD
--- NOTE | 2017-07-17 14:31 | PN ---
DATE OF SERVICE: 07/17/17 SUBJECTIVE: Suprapubic abscess is draining clear to yellow stuff. It did show moderate growth ground positive cocci. WBC is a lot improved from 18,000 to 12,000 now. Still has pain. REVIEW OF SYSTEMS: CONSTITUTIONAL: No fever, no chills. HEENT: Normal. ENDOCRINE: No weight gain, no weight loss. CVS: No angina symptoms. No CHF symptoms. No palpitations. No atypical chest pain for CAD. No shortness of breath. No PND, no orthopnea. RESPIRATORY: No cough, no hemoptysis. GI: No nausea, no vomiting. No abdominal pain. : No hematuria. No polyuria. MUSCULOSKELETAL: No joint swelling. PSYCHIATRIC: Not anxious. No depression. No suicidal thoughts. No homicidal thoughts. SKIN: Intact. No rash. PHYSICAL EXAMINATION: V/S: Blood pressure 134/82, respiratory rate 20, heart rate 82 and temperature 97.9 with saturation 92% on 2 liters on room air. HEENT: Normocephalic, atraumatic. NECK: Supple. No JVD, no carotid bruit. No lymphadenopathy. LUNGS: Clear to auscultation. No rales or rhonchi. HEART: S1, S2 normal. No S3. No murmur, gallop or regurgitation. ABDOMEN: Soft, nontender. Bowel sounds active. No rigidity. No rebound or guarding. No CVA tenderness. Suprapubic redness, tenderness and swelling is present and draining clear to yellow stuff. Palpable mass is seen. EXTREMITIES: 2+ edema. No clubbing or cyanosis. Varicose veins on the lower extremity MUSCULOSKELETAL: No joint swelling. NEUROLOGIC: Awake, alert, oriented times three. No focal deficit. LYMPHATIC: No lymph nodes palpable. SKIN: Intact. LABS: WBC 12.5, hgb 13.6, plt count 188, sodium 141, potassium 3.8, chloride 101, bicarb 29, BUN 8, creatinine 0.66 and glucose 168. ASSESSMENT: 1. Suprapubic abscess 2. Diabetes 3. Hypertension 4. Varicose veins 5. Sleep apnea on CPAP PLAN: 1. Continue the Rocephin and Vancomycin 2. Wet to dry dressing 3. Out of bed to chair activity as tolerated TIME SPENT: More than 35 minutes MTDD
[2017-07-17] MEDS: MEVACOR PO SCH (20:38)
[2017-07-17] MEDS: LAMICTAL PO SCH (20:38)
[2017-07-17] MEDS: ATARAX PO SCH (20:38)
[2017-07-17] MEDS: LANTUS SUBCUT SCH (20:39)
[2017-07-17] MEDS: TORADOL IVP PRN (20:52)
[2017-07-18] MEDS: ALBUTEROL 0.083% NEB NEB SCH ×4 (05:00→20:50)
[2017-07-18] MEDS: VANCOMYCIN 1,000 MG in SODIUM CHLORIDE 200 ML IV SCH ×3 (05:02→20:20)
[2017-07-18] MEDS: HUMALOG SUBCUT SCH ×3 (08:20→17:48)
[2017-07-18] MEDS: SYMBICORT 80-4.5 MCG INHALER IH SCH ×2 (08:20→20:21)
[2017-07-18] MEDS: FLONASE NAS SCH (08:21)
[2017-07-18] MEDS: LOVENOX SUBCUT SCH (08:22)
[2017-07-18] MEDS: CELEXA PO SCH (08:23)
[2017-07-18] MEDS: TRADJENTA PO SCH (08:23)
[2017-07-18] MEDS: MIRAPEX PO SCH ×2 (08:23→20:22)
[2017-07-18] MEDS: ASPIRIN EC PO SCH (08:23)
[2017-07-18] MEDS: LOPRESSOR PO SCH ×2 (08:23→17:49)
[2017-07-18] MEDS: PLAVIX PO SCH (08:23)
[2017-07-18] MEDS: NEURONTIN PO SCH ×6 (08:23→20:22)
[2017-07-18] MEDS: GLUCOPHAGE PO SCH ×2 (08:24→17:48)
[2017-07-18] MEDS: ROCEPHIN 1 GM in SODIUM CHLORIDE 50 ML IV SCH (08:25)
[2017-07-18] MEDS: LANTUS SUBCUT SCH (20:20)
[2017-07-18] MEDS: LAMICTAL PO SCH (20:22)
[2017-07-18] MEDS: MEVACOR PO SCH (20:22)
[2017-07-18] MEDS: ATARAX PO SCH (20:22)
[2017-07-18] MEDS: TORADOL IVP PRN (20:31)
[2017-07-19] MEDS: VANCOMYCIN 1,000 MG in SODIUM CHLORIDE 200 ML IV SCH ×3 (04:04→20:55)
[2017-07-19] MEDS: ALBUTEROL 0.083% NEB NEB SCH ×4 (05:14→23:20)
[2017-07-19] MEDS: ROCEPHIN 1 GM in SODIUM CHLORIDE 50 ML IV SCH (08:21)
[2017-07-19] MEDS: MIRAPEX PO SCH ×2 (08:22→20:53)
[2017-07-19] MEDS: SYMBICORT 80-4.5 MCG INHALER IH SCH ×2 (08:22→20:57)
[2017-07-19] MEDS: LOPRESSOR PO SCH ×2 (08:22→17:31)
[2017-07-19] MEDS: FLONASE NAS SCH (08:22)
[2017-07-19] MEDS: PLAVIX PO SCH (08:23)
[2017-07-19] MEDS: GLUCOPHAGE PO SCH ×2 (08:23→17:31)
[2017-07-19] MEDS: NEURONTIN PO SCH ×6 (08:23→20:54)
[2017-07-19] MEDS: CELEXA PO SCH (08:23)
[2017-07-19] MEDS: LOVENOX SUBCUT SCH (08:24)
[2017-07-19] MEDS: TRADJENTA PO SCH (08:24)
[2017-07-19] MEDS: ASPIRIN EC PO SCH (08:24)
[2017-07-19] MEDS: HUMALOG SUBCUT SCH ×3 (08:30→17:32)
[2017-07-19] MEDS: ATARAX PO SCH (20:54)
[2017-07-19] MEDS: LAMICTAL PO SCH (20:54)
[2017-07-19] MEDS: MEVACOR PO SCH (20:54)
[2017-07-19] MEDS: LANTUS SUBCUT SCH (20:57)
[2017-07-20] MEDS: ALBUTEROL 0.083% NEB NEB SCH ×2 (05:05→10:21)
[2017-07-20] MEDS: VANCOMYCIN 1,000 MG in SODIUM CHLORIDE 200 ML IV SCH ×3 (05:44→20:55)
[2017-07-20] MEDS ORDERED: LASIX IVP STA (08:49)
--- NOTE | 2017-07-20 09:38 | DI ---
EXAM: CHEST FRONTAL AND LATERAL VIEWS HISTORY: Shortness of breath. COMPARISON: 07/13/2017 FINDINGS: Prominent heart size is stable. Diffuse mild interstitial accentuation relatively similar to that previously seen could represent mild interstitial infiltrate or chronic lung changes. There is no woo consolidation, visible pleural fluid or pneumothorax. IMPRESSION: Prominent heart size with mild interstitial accentuation which could represent chronic in terstitial changes or mild interstitial edema, less likely interstitial pneumonitis.
[2017-07-20] MEDS: HUMALOG SUBCUT SCH ×3 (09:39→17:53)
[2017-07-20] MEDS: LOVENOX SUBCUT SCH (09:40)
[2017-07-20] MEDS: SYMBICORT 80-4.5 MCG INHALER IH SCH ×2 (09:41→20:51)
[2017-07-20] MEDS: ROCEPHIN 1 GM in SODIUM CHLORIDE 50 ML IV SCH (09:41)
[2017-07-20] MEDS: MIRAPEX PO SCH ×2 (09:42→21:00)
[2017-07-20] MEDS: NYSTOP POWDER TP SCH ×3 (09:42→20:57)
[2017-07-20] MEDS: CELEXA PO SCH (09:42)
[2017-07-20] MEDS: GLUCOPHAGE PO SCH ×2 (09:43→17:42)
[2017-07-20] MEDS: LOPRESSOR PO SCH ×2 (09:43→17:42)
[2017-07-20] MEDS: ASPIRIN EC PO SCH (09:43)
[2017-07-20] MEDS: TRADJENTA PO SCH (09:43)
[2017-07-20] MEDS: NEURONTIN PO SCH ×6 (09:43→21:00)
[2017-07-20] MEDS: PLAVIX PO SCH (09:44)
[2017-07-20] MEDS: FLONASE NAS SCH (09:44)
[2017-07-20] MEDS ORDERED: DECADRON 4 MG/ML SDV IVP STA (12:16)
[2017-07-20] MEDS: DUONEB NEB SCH ×2 (13:11→22:05)
[2017-07-20] MEDS: LANTUS SUBCUT SCH (20:51)
[2017-07-20] MEDS: ATARAX PO SCH (21:00)
[2017-07-20] MEDS: LAMICTAL PO SCH (21:00)
[2017-07-20] MEDS: MEVACOR PO SCH (21:01)
[2017-07-21] MEDS: VANCOMYCIN 1,000 MG in SODIUM CHLORIDE 200 ML IV SCH (04:06)
[2017-07-21] MEDS: DUONEB NEB SCH ×3 (05:08→22:48)
[2017-07-21] MEDS: NYSTOP POWDER TP SCH ×3 (09:16→21:20)
[2017-07-21] MEDS: ROCEPHIN 1 GM in SODIUM CHLORIDE 50 ML IV SCH (09:16)
[2017-07-21] MEDS: SYMBICORT 80-4.5 MCG INHALER IH SCH ×2 (09:17→21:18)
[2017-07-21] MEDS: FLONASE NAS SCH (09:17)
[2017-07-21] MEDS: HUMALOG SUBCUT SCH ×3 (09:17→17:20)
[2017-07-21] MEDS: CELEXA PO SCH (09:18)
[2017-07-21] MEDS: TRADJENTA PO SCH (09:19)
[2017-07-21] MEDS: PLAVIX PO SCH (09:19)
[2017-07-21] MEDS: LOPRESSOR PO SCH ×2 (09:19→17:17)
[2017-07-21] MEDS: NEURONTIN PO SCH ×6 (09:19→21:19)
[2017-07-21] MEDS: MIRAPEX PO SCH ×2 (09:19→21:19)
[2017-07-21] MEDS: GLUCOPHAGE PO SCH ×2 (09:20→17:17)
[2017-07-21] MEDS: ASPIRIN EC PO SCH (09:20)
[2017-07-21] MEDS: LOVENOX SUBCUT SCH (09:20)
[2017-07-21] MEDS ORDERED: LASIX IVP STA (09:49)
[2017-07-21] MEDS ORDERED: LASIX TAB PO STA (10:28)
[2017-07-21] MEDS: LANTUS SUBCUT SCH (21:17)
[2017-07-21] MEDS: LAMICTAL PO SCH (21:18)
[2017-07-21] MEDS: ATARAX PO SCH (21:19)
[2017-07-21] MEDS: MEVACOR PO SCH (21:19)
[2017-07-21] MEDS: BACTRIM DS 800/160 MG PO SCH (21:19)
[2017-07-22] MEDS: DUONEB NEB SCH ×3 (05:37→22:50)
[2017-07-22] MEDS: SYMBICORT 80-4.5 MCG INHALER IH SCH ×2 (10:49→21:08)
[2017-07-22] MEDS: LOVENOX SUBCUT SCH (10:50)
[2017-07-22] MEDS: ASPIRIN EC PO SCH (10:50)
[2017-07-22] MEDS: TRADJENTA PO SCH (10:50)
[2017-07-22] MEDS: CELEXA PO SCH (10:51)
[2017-07-22] MEDS: NEURONTIN PO SCH ×6 (10:51→21:11)
[2017-07-22] MEDS: PLAVIX PO SCH (10:51)
[2017-07-22] MEDS: MIRAPEX PO SCH ×2 (10:52→21:11)
[2017-07-22] MEDS: LOPRESSOR PO SCH ×2 (10:53→17:01)
[2017-07-22] MEDS: GLUCOPHAGE PO SCH ×2 (10:53→17:01)
[2017-07-22] MEDS: BACTRIM DS 800/160 MG PO SCH ×2 (10:53→21:11)
[2017-07-22] MEDS: FLONASE NAS SCH (10:54)
[2017-07-22] MEDS: HUMALOG SUBCUT SCH ×3 (10:54→17:12)
[2017-07-22] MEDS: NYSTOP POWDER TP SCH ×3 (10:55→21:11)
[2017-07-22] MEDS: LANTUS SUBCUT SCH (21:09)
[2017-07-22] MEDS: ATARAX PO SCH (21:09)
[2017-07-22] MEDS: LAMICTAL PO SCH (21:10)
[2017-07-22] MEDS: MEVACOR PO SCH (21:11)
[2017-07-23] MEDS: DUONEB NEB SCH ×3 (05:02→22:05)
[2017-07-23] MEDS: SYMBICORT 80-4.5 MCG INHALER IH SCH ×2 (08:29→20:09)
[2017-07-23] MEDS: GLUCOPHAGE PO SCH ×2 (08:30→16:37)
[2017-07-23] MEDS: MIRAPEX PO SCH ×2 (08:31→20:10)
[2017-07-23] MEDS: PLAVIX PO SCH (08:31)
[2017-07-23] MEDS: LOPRESSOR PO SCH ×2 (08:31→16:37)
[2017-07-23] MEDS: TRADJENTA PO SCH (08:31)
[2017-07-23] MEDS: BACTRIM DS 800/160 MG PO SCH ×2 (08:31→20:09)
[2017-07-23] MEDS: CELEXA PO SCH (08:31)
[2017-07-23] MEDS: ASPIRIN EC PO SCH (08:31)
[2017-07-23] MEDS: FLONASE NAS SCH (08:32)
[2017-07-23] MEDS: NEURONTIN PO SCH ×6 (08:32→20:10)
[2017-07-23] MEDS: HUMALOG SUBCUT SCH ×3 (08:32→16:39)
[2017-07-23] MEDS: LOVENOX SUBCUT SCH (08:32)
[2017-07-23] MEDS: NYSTOP POWDER TP SCH ×3 (08:33→20:13)
[2017-07-23] MEDS: ATARAX PO SCH (20:09)
[2017-07-23] MEDS: LAMICTAL PO SCH (20:09)
[2017-07-23] MEDS: MEVACOR PO SCH (20:10)
[2017-07-23] MEDS: LANTUS SUBCUT SCH (20:17)
[2017-07-24] MEDS: DUONEB NEB SCH (06:04)
[2017-07-24 06:07] VITALS: BP 142/87; TEMP 97.6
[2017-07-24] MEDS: CELEXA PO SCH (08:15)
[2017-07-24] MEDS: ASPIRIN EC PO SCH (08:15)
[2017-07-24] MEDS: SYMBICORT 80-4.5 MCG INHALER IH SCH (08:15)
[2017-07-24] MEDS: MIRAPEX PO SCH (08:15)
[2017-07-24] MEDS: BACTRIM DS 800/160 MG PO SCH (08:15)
[2017-07-24] MEDS: NEURONTIN PO SCH ×2 (08:15→08:16)
[2017-07-24] MEDS: GLUCOPHAGE PO SCH (08:15)
[2017-07-24] MEDS: LOPRESSOR PO SCH (08:16)
[2017-07-24] MEDS: NYSTOP POWDER TP SCH (08:16)
[2017-07-24] MEDS: PLAVIX PO SCH (08:16)
[2017-07-24] MEDS: TRADJENTA PO SCH (08:16)
[2017-07-24] MEDS: FLONASE NAS SCH (08:17)
[2017-07-24] MEDS: HUMALOG SUBCUT SCH (08:17)
--- NOTE | 2017-07-24 09:25 | PN ---
DATE OF SERVICE: 07/23/17 SUBJECTIVE: Breathing is better as she has been more active and walking all over. Swelling and redness in the suprapubic area is better, draining clear to yellow stuff. REVIEW OF SYSTEMS: CONSTITUTIONAL: No fever, no chills. HEENT: Normal. ENDOCRINE: No weight gain, no weight loss. CVS: No angina symptoms. No CHF symptoms. No palpitations. No atypical chest pain for CAD. No shortness of breath. No PND, no orthopnea. RESPIRATORY: No cough, no hemoptysis. GI: No nausea, no vomiting. No abdominal pain. : No hematuria. No polyuria. MUSCULOSKELETAL: No joint swelling. PSYCHIATRIC: Not anxious. No depression. No suicidal thoughts. No homicidal thoughts. SKIN: Intact. No rash. PHYSICAL EXAMINATION: V/S: Blood pressure 97/58, respiratory rate 20, heart rate 71, temperature 99 and saturation 94%. HEENT: Normocephalic, atraumatic. Mucosa dry. NECK: Supple. No JVD, no carotid bruit. No lymphadenopathy. LUNGS: Clear to auscultation. No rales or rhonchi. HEART: S1, S2 normal. No S3. No murmur, gallop or regurgitation. ABDOMEN: Soft, nontender. Bowel sounds active. No rigidity. No rebound or guarding. No CVA tenderness. suprapubic redness and swelling is present. Still hard mass towards the right upper area of the suprapubic area. Hard to touch, tender to touch. Not able to drain any puss today. EXTREMITIES: No pedal edema. No clubbing or cyanosis MUSCULOSKELETAL: No joint swelling. NEUROLOGIC: Awake, alert, oriented times three. No focal deficit. LYMPHATIC: No lymph nodes palpable. SKIN: Intact. LABS: WBC 11.0, hgb 12.9, hct 39.7, plt count 221, sodium 142, potassium 3.4, chloride 97, bicarb 35, BUN 8, creatinine 0.75 and glucose 104. ASSESSMENT: 1. Suprapubic abscess which is draining puss and MSSA culture positive 2. Diabetes 3. Sleep apnea on CPAP 4. Varicose veins 5. IBS 6. Hypertension 7. Hypocholesterolemia PLAN: 1. Wound Care appointment as outpatient 2. Continue Bactrim DS 3. Accu-check with coverage TIME SPENT: More than 35 minutes MTDD
--- NOTE | 2017-07-24 09:32 | PN ---
DATE OF SERVICE: 07/22/17 SUBJECTIVE: The suprapubic wound is draining puss, copious amount per patient. Whole 4x4 was wet yesterday. REVIEW OF SYSTEMS: CONSTITUTIONAL: No fever, no chills. HEENT: Normal. ENDOCRINE: No weight gain, no weight loss. CVS: No angina symptoms. No CHF symptoms. No palpitations. No atypical chest pain for CAD. Shortness of breath is improved. No PND, no orthopnea. RESPIRATORY: No cough, no hemoptysis. GI: No nausea, no vomiting. No abdominal pain. : No hematuria. No polyuria. MUSCULOSKELETAL: No joint swelling. PSYCHIATRIC: Not anxious. No depression. No suicidal thoughts. No homicidal thoughts. SKIN: Intact. No rash. PHYSICAL EXAMINATION: V/S: Blood pressure 127/65, respiratory rate 18, heart rate 65, temperature 97.5 , saturation is 97%. HEENT: Normocephalic, atraumatic. Mucosa dry. NECK: Supple. No JVD, no carotid bruit. No lymphadenopathy. LUNGS: Decreased and clear to auscultation. No rales or rhonchi. HEART: S1, S2 normal. No S3. No murmur, gallop or regurgitation. ABDOMEN: Soft, nontender. Bowel sounds active. No rigidity. No rebound or guarding. No CVA tenderness. Suprapubic redness and tenderness is present. Palpable mass on the right side of the suprapubic area draining puss. EXTREMITIES: No pedal edema. No clubbing or cyanosis. Lower extremities are red today and warmness to touch. Varicose veins are present. MUSCULOSKELETAL: No joint swelling. NEUROLOGIC: Awake, alert, oriented times three. No focal deficit. LYMPHATIC: No lymph nodes palpable. SKIN: Intact. LABS: WBC 11.10, hgb 12.9, hct 39.7, plt count 221, sodium 142, potassium 3.4, chloride 97, bicarb 35, BUN 8, creatinine 0.75 and glucose 104. ASSESSMENT: 1. Suprapubic abscess with culture showing positive for the MSSA 2. Diabetes 3. Hypertension 4. Sleep apnea on CPAP 5. History of coronary artery disease status post stent 6. Obesity 7. Varicose veins 8. Leg edema PLAN: 1. Continue the wet to dry dressing 2. Bactrim 3. Accu-checks with coverage 4. Daily I&O's TIME SPENT: More than 35 minutes MTDD
--- NOTE | 2017-07-24 09:38 | PN ---
DATE OF SERVICE: 07/21/17 SUBJECTIVE: Suprapubic tenderness and the redness is still present, oozing clear stuff. The patient was short of breath yesterday and today she is better. We gave her some breathing treatments and Lasix which did help her. REVIEW OF SYSTEMS: CONSTITUTIONAL: No fever, no chills. HEENT: Normal. ENDOCRINE: No weight gain, no weight loss. CVS: No angina symptoms. No CHF symptoms. No palpitations. No atypical chest pain for CAD. No shortness of breath. No PND, no orthopnea. RESPIRATORY: No cough, no hemoptysis. GI: No nausea, no vomiting. No abdominal pain. : No hematuria. No polyuria. MUSCULOSKELETAL: No joint swelling. PSYCHIATRIC: Not anxious. No depression. No suicidal thoughts. No homicidal thoughts. SKIN: Intact. No rash. PHYSICAL EXAMINATION: V/S: Blood pressure 129/78, respiratory rate 18, heart rate 74, temperature 98.0 and saturation 92%. HEENT: Normocephalic, atraumatic. Mucosa dry. NECK: Supple. No JVD, no carotid bruit. No lymphadenopathy. LUNGS: Clear to auscultation. No rales or rhonchi. HEART: S1, S2 normal. No S3. No murmur, gallop or regurgitation. ABDOMEN: Soft, nontender. Bowel sounds active. No rigidity. No rebound or guarding. No CVA tenderness. Suprapubic redness and tenderness is present. Distention is present. Palpable abscess is seen. Could not express any puss today. EXTREMITIES: No clubbing or cyanosis. Both lower extremities have multiple varicose veins with edema. MUSCULOSKELETAL: No joint swelling. NEUROLOGIC: Awake, alert, oriented times three. No focal deficit. LYMPHATIC: No lymph nodes palpable. SKIN: Intact. LABS: WBC 11.01, hgb 13.0, hct 39.9, plt count 196, sodium 138, potassium 4.1, chloride 99, bicarb 29, BUN 7, creatinine 0.72, glucose 157. ASSESSMENT: 1. Suprapubic abscess and diffused cellulitis, MSSA positive 2. Diabetes 3. COPD 4. Coronary artery disease 5. Sleep apnea on CPAP 6. Obesity 7. Hypoxemia PLAN: 1. Continue the Vancomycin and Rocephin 2. Out of bed to chair 3. Accu-checks with coverage 4. 2 liters Nasal Cannula TIME SPENT: More than 35 minutes MTDAdalberto
--- NOTE | 2017-07-24 09:46 | PN ---
DATE OF SERVICE: 07/20/17 SUBJECTIVE: The suprapubic is draining some yellow stuff. Wet to dry dressing being made. The patient has been up and about and walking but patient complains some shortness of breath and her saturation is around 92-91% and going up to 96% on the room air. The patient is sitting in the bed and complaining of some shortness of breath. REVIEW OF SYSTEMS: CONSTITUTIONAL: No fever, no chills. HEENT: Normal. ENDOCRINE: No weight gain, no weight loss. CVS: No angina symptoms. No CHF symptoms. No palpitations. No atypical chest pain for CAD. Shortness of breath. No PND, no orthopnea. RESPIRATORY: No cough, no hemoptysis. GI: No nausea, no vomiting. No abdominal pain. : No hematuria. No polyuria. MUSCULOSKELETAL: No joint swelling. PSYCHIATRIC: Not anxious. No depression. No suicidal thoughts. No homicidal thoughts. SKIN: Intact. No rash. PHYSICAL EXAMINATION: V/S: Blood pressure 144/84, respiratory rate 16, heart rate 85 and temperature 97.5 with saturation 92% on the room air. HEENT: Normocephalic, atraumatic. NECK: Supple. No JVD, no carotid bruit. No lymphadenopathy. LUNGS: Basilar crackles. Clear to auscultation. No rales or rhonchi. HEART: S1, S2 normal. No S3. No murmur, gallop or regurgitation. ABDOMEN: Soft, nontender. Bowel sounds active. No rigidity. No rebound or guarding. No CVA tenderness. Suprapubic redness, tenderness and draining yellow colored puss. Right extremity of the suprapubic area hard to touch and palpable mass is seen. EXTREMITIES: 1+ edema. No clubbing or cyanosis. A lot of Varicose veins. MUSCULOSKELETAL: No joint swelling. NEUROLOGIC: Awake, alert, oriented times three. No focal deficit. LYMPHATIC: No lymph nodes palpable. SKIN: Intact. LABS: WBC 11.01, hgb 13.0, hct 39.9, plt count 196, sodium 138, potassium 4.1, chloride 99, bicarb 29, BUN 7, creatinine 0.72 and glucose 157. ASSESSMENT: 1. Suprapubic diffused cellulitis with abscess draining MSSA 2. Diabetes 3. Hypertension 4. Shortness of breath 5. Hypoxemia 6. Obesity 7. CAD status post stent October 2016 8. Sleep apnea on CPAP PLAN: 1. Will get chest x-ray 2. Lasix 40mg IV push 3. Continue the Vancomycin and Rocephin 4. Daily I&O's TIME SPENT: More than 35 minutes MTDD
--- NOTE | 2017-07-24 09:51 | PN ---
DATE OF SERVICE: 07/19/17 SUBJECTIVE: The patient was admitted with suprapubic abscess draining some. REVIEW OF SYSTEMS: CONSTITUTIONAL: No fever, no chills. HEENT: Normal. ENDOCRINE: No weight gain, no weight loss. CVS: No angina symptoms. No CHF symptoms. No palpitations. No atypical chest pain for CAD. No shortness of breath. No PND, no orthopnea. RESPIRATORY: No cough, no hemoptysis. GI: No nausea, no vomiting. No abdominal pain. : No hematuria. No polyuria. MUSCULOSKELETAL: No joint swelling. PSYCHIATRIC: Not anxious. No depression. No suicidal thoughts. No homicidal thoughts. SKIN: Intact. No rash. PHYSICAL EXAMINATION: V/S: Blood pressure 119/68, respiratory rate 18, heart rate 83, temperature 97.8 with saturation 94%. HEENT: Normocephalic, atraumatic. Mucosa dry. NECK: Supple. No JVD, no carotid bruit. No lymphadenopathy. LUNGS: Clear to auscultation. No rales or rhonchi. HEART: S1, S2 normal. No S3. No murmur, gallop or regurgitation. ABDOMEN: Soft, nontender. Bowel sounds active. No rigidity. No rebound or guarding. No CVA tenderness. Suprapubic redness, swelling and tenderness present draining some clear stuff. Still hard to feel mass. Abscess can be felt. EXTREMITIES: No pedal edema. No clubbing or cyanosis MUSCULOSKELETAL: No joint swelling. NEUROLOGIC: Awake, alert, oriented times three. No focal deficit. LYMPHATIC: No lymph nodes palpable. SKIN: Intact. LABS: WBC 11.01, hgb 13.8, hct 39.9,. plt count 196, sodium 138, potassium 4.1, chloride 99, bicarb 29, BUN 7, creatinine 0.72 and glucose 157. ASSESSMENT: 1. Suprapubic abscess, MSSA positive 2. Hypertension 3. Dyslipidemia 4. Sleep apnea on CPAP 5. IBS PLAN: 1. Continue the Rocephin 1 gram daily 2. Vancomycin 1 gram daily 3. Wet to dry dressing 4. Daily I&O's TIME SPENT: More than 35 minutes MTDD
--- NOTE | 2017-07-24 10:01 | PN ---
DATE OF SERVICE: 07/18/17 SUBJECTIVE: The suprapubic abscess is draining clear fluid. Redness and swelling is better. The wound did grow staph aureus, Vancomycin sensitive. Not MSRA it is MSSA. No fever or chills. WBC is getting better. REVIEW OF SYSTEMS: CONSTITUTIONAL: No fever, no chills. HEENT: Normal. ENDOCRINE: No weight gain, no weight loss. CVS: No angina symptoms. No CHF symptoms. No palpitations. No atypical chest pain for CAD. No shortness of breath. No PND, no orthopnea. RESPIRATORY: No cough, no hemoptysis. GI: No nausea, no vomiting. No abdominal pain. : No hematuria. No polyuria. MUSCULOSKELETAL: No joint swelling. PSYCHIATRIC: Not anxious. No depression. No suicidal thoughts. No homicidal thoughts. SKIN: Intact. No rash. PHYSICAL EXAMINATION: V/S: Blood pressure 145/79, respiratory rate 20, heart rate 77 and saturation 91 on room air and temperature 97.5. HEENT: Normocephalic, atraumatic. Mucosa dry. NECK: Supple. No JVD, no carotid bruit. No lymphadenopathy. LUNGS: Clear to auscultation. No rales or rhonchi. HEART: S1, S2 normal. No S3. No murmur, gallop or regurgitation. ABDOMEN: Soft, nontender. Bowel sounds active. No rigidity. No rebound or guarding. No CVA tenderness. Suprapubic tenderness and redness and swelling is present. Clear fluid is draining. Diffused tenderness in the suprapubic area. EXTREMITIES: 1+ edema. No clubbing or cyanosis. Lower extremity varicose veins are present. MUSCULOSKELETAL: No joint swelling. NEUROLOGIC: Awake, alert, oriented times three. No focal deficit. LYMPHATIC: No lymph nodes palpable. SKIN: Intact. LABS: WBC 11.01, hgb 13.0, hct 39.9, plt count 196, sodium 138, potassium 4.1, chloride 99, bicarb 29, BUN 7, creatinine 0.72 and glucose 157. ASSESSMENT: 1. Suprapubic diffused abscess which is draining puss, positive for MSSA 2. Diabetes 3. Hypertension 4. Dyslipidemia 5. Coronary artery disease, October 2016 6. Sleep apnea on CPAP PLAN: 1. Continue Vancomycin and Rocephin 2. Wet to dry dressing 3. Lovenox for the DVT prophylaxis 4. Accu-checks with coverage TIME SPENT: More than 35 minutes MTDD
--- NOTE | 2017-08-21 15:31 | DS ---
DATE OF SERVICE: 07/24/17 FINAL DIAGNOSIS: 1. SUPRAPUBIC ABSCESS WITH ORGANISM GROWING STAPHYLOCOCCUS AUREUS, WHICH IS SENSITIVE 2. DIABETES 3. HYPERTENSION 4. SLEEP APNEA ON C-PAP 5. VARICOSE VEINS 6. IRRITABLE BOWEL SYNDROME 7. HISTORY OF DIVERTICULITIS 8. OSTEOARTHRITIS 9. BIPOLAR DEPRESSION 10. CHOLECYSTECTOMY, APPENDECTOMY PLAN: 1. Discharge the patient home. 2. Follow up with Wound Care in [place] within 4-5 days. 3. Continue the Bactrim DS one tablet twice a day for 7 days. 4. Drink at lot of regular fluids. 5. Take Probiotics and yogurt. 6. Antibiotic use and diarrhea was discussed. Verbalized understanding. 7. Continue the rest of the home medications, which are Albuterol, Aspirin, Symbicort, Celexa, Plavix, Flonase, Neurontin, Hydroxyzine, NovoLog, Lantus, Lamotrigine, Tradjenta, Mevacor, Metformin, Lopressor, Nitroglycerin, [place] 3, Mirapex. 8. Diet: 2000 ADA diet. 9. Activity: As much as tolerated. DISEASE SPECIFIC EDUCATION: About the antibiotic use and diarrhea, diabetes and infection was discussed and she verbalized understanding. HOSPITAL COURSE: Kaycee Olvera, who is a 56 year old female, came to the emergency room with suprapubic swelling, redness and drainage. White count was 20,000. At that time she was admitted to the hospital by Dr. Galindo for IV antibiotics and Rocephin and Vancomycin. After two days, the wound started draining pus and we did express some pus and got the culture which did grow the staph aureus, which is MSSA and sensitive to the Vancomycin and Rocephin. The antibiotics were continued and dry dressing was given. With the given treatment , the wound was slowly oozing pus, clear yellow pus and the swelling and redness were getting better. The right upper area of the abscess was still present and was not getting better and we tried to express the pus and we did not get any pus. At that time as the patient was more up and about walking and the white count was normal, most of the swelling and redness is better. Wound Care appointment was made as an outpatient and the patient was started on the Bactrim DS and discharged to home. She will be followed with Wound Care on Thursday. TIME SPENT: MORE THAN 65 MINUTES TODAY MTDD
== END 2017-07-24 10:35 | disposition home or self-care (01) | DRG 603 ==
LOC: ED 21:39 → MEDSURG A 07-14 00:58 → UNDOADMIN 07-14 00:58
PROVIDERS: ADMIT Emergency Medicine; ATTEND Emergency Medicine
DX: L02.216 Cutaneous abscess of umbilicus (principal); L03.316 Cellulitis of umbilicus; L72.8 Other follicular cysts of the skin and subcutaneous tissue; I25.10 Atherosclerotic heart disease of native coronary artery without angina pectoris; E11.65 Type 2 diabetes mellitus with hyperglycemia; I10 Essential (primary) hypertension; J44.9 Chronic obstructive pulmonary disease, unspecified; G62.9 Polyneuropathy, unspecified; R09.02 Hypoxemia; E66.9 Obesity, unspecified; R06.02 Shortness of breath; B95.61 Methicillin susceptible Staphylococcus aureus infection as the cause of diseases classified elsewhere; G47.30 Sleep apnea, unspecified; I83.90 Asymptomatic varicose veins of unspecified lower extremity; K58.9 Irritable bowel syndrome, unspecified; E78.6 Lipoprotein deficiency; M19.90 Unspecified osteoarthritis, unspecified site; F31.9 Bipolar disorder, unspecified; F17.210 Nicotine dependence, cigarettes, uncomplicated; Z16.11 Resistance to penicillins; Z79.4 Long term (current) use of insulin; Z79.02 Long term (current) use of antithrombotics/antiplatelets; Z79.899 Other long term (current) drug therapy; Z95.5 Presence of coronary angioplasty implant and graft; Z86.718 Personal history of other venous thrombosis and embolism; Z87.19 Personal history of other diseases of the digestive system; Z90.49 Acquired absence of other specified parts of digestive tract
CPT/HCPCS: 36415; 80053; 80202; 81001; 82803; 82962; 83880; 85025; 85651; 87040; 87070; 87186; 93005; 93010; 94640; 96365; 96366; 96375; 99284

== ENCOUNTER 2017-08-20 12:40 | Outpatient (CLI) | END 2017-08-20 12:41 | disposition home or self-care (01) | LOC: FCC-LAB 12:40 | PROVIDERS: ATTEND Nurse Practitioner Family | DX: E11.9 Type 2 diabetes mellitus without complications (principal) | CPT/HCPCS: 36415; 83037 ==

== ENCOUNTER 2018-02-27 08:54 | Outpatient (CLI) ==
--- NOTE | 2018-02-27 13:45 | CT ---
EXAM: CT chest without contra HISTORY: Lung nodules COMPARISON: 07/02/2017 TECHNIQUE: CT chest performed without intravenous contrast. Coronal and sagittal reformatted images obtained. FINDINGS: Thyroid and thoracic inlet appear normal. Heart normal in size. Coronary calcifications. No pericardial effusion. Aorta normal in caliber. Mild atherosclerosis. Esophagus unremarkable. Evaluation for lymphadenopathy limited without contrast. No lymphadenopathy identified. Visualized portion upper abdomen demonstrates no acute abnormality. No acute abnormalities of the bones. Dege nerative change in the spine. Central airway patent. Bilateral lower airway thickening. No airspac e consolidation. No pleural effusion. No pneumothorax. New 3 mm pulmonary nodule right lung image 33. Stable 5 mm ground-glass nodule left lung image 13. Stable 5 mm pulmonary nodule left lung imag e 28. Stable 5 mm pulmonary nodule left lung image 42. Stable 3 mm pulmonary nodule left lung image 35 IMPRESSION: 1. Several stable pulmonary nodules in the left lung measuring up to 5 mm. Additionally, there is a new 3 mm pulmonary nodule in the right lung, nonspecific. Recommend CT chest follow-up in 6 12 month s for reevaluation. 2. Bilateral lower airway thickening, since the airways infection/inflammation. 3. Coronary calcifications.
== END 2018-02-27 08:55 | disposition home or self-care (01) ==
LOC: RAD 08:54
PROVIDERS: ATTEND Internal Medicine Pulmonary Disease
DX: R91.8 Other nonspecific abnormal finding of lung field (principal)

== ENCOUNTER 2018-09-26 16:06 | Emergency (ER) | payer OTHER ==
[2018-09-26 16:17] VITALS: BP 182/91; TEMP 96.8; BMI 55.6
--- NOTE | 2018-09-26 17:11 | ED.PDOC ---
General ED Provider: Dr. TIFFANY CARBONE Chief Complaint: Respiratory Complaint Stated Complaint: SOB and chest congestion Time Seen by Physician: 16:50 Mode of Arrival: Walk-In Information Source: Patient Exam Limitations: No limitations Primary Care Provider: SHARON STEVEN Nursing and Triage Documentation Reviewed and Agree: Yes Does patient meet sepsis criteria?: No System Inflammatory Response Syndrome: Not Applicable Sepsis Protocol: For patient's 13 years and over: Temp is 96.8 and below OR 101 and greater Pulse >90 BPM Resp >20/minute Acutely Altered Mental Status Are patient's symptoms suggestive of a new infection, such as: -Pneumonia -Skin, Soft Tissue -Endocarditis -UTI -Bone, Joint Infection -Implantable Device -Acute Abdominal Infection -Wound Infection -Meningitis -Blood Stream Catheter Infection -Unknown Respiratory Complaint Exam - Shortness of Air Complaint/Exam Symptoms Are: Still present Timing: Intermittent Initial Severity: Moderate Current Severity: Mild Character: Reports: Dyspnea at rest, Dyspnea on exertion Aggravating: Reports: Allergens, Recumbent position Alleviating: Reports: Bronchodilators Associated Signs and Symptoms: Reports: Cough, Wheezing, Nasal congestion History of Healthcare-Acquired Pneumonia: No Pulmonary Embolism Risk Factors: Reports: None Cardiac Risk Factors: Reports: None Pseudomonas Risk Factors: Reports: None Tuberculosis Risk Factors: Reports: None Home Oxygen Use: No Recent Stress Test: No Respiratory Distress: None Stridor Present: No Tracheal Deviation: No Subcutaneous Emphysema: No Accessory Muscle Use: No Retractions: Not Present Diminished Breath Sounds: Yes Leg Swelling: No Jose Eduardo's Sign Present: No Grunting Respirations: No Kussmaul Respirations: No Differential Diagnoses: COPD Exacerbation, Bronchitis, Bronchospasm Review of Systems - Review Of Systems Constitutional: Reports: Weakness Eyes: Reports: No symptoms Ears, Nose, Mouth, Throat: Reports: No symptoms Respiratory: Reports: Cough, Short of air, Wheezing Cardiac: Reports: No symptoms GI: Reports: No symptoms : Reports: No symptoms Musculoskeletal: Reports: No symptoms Skin: Reports: No symptoms Neurological: Reports: No symptoms Endocrine: Reports: No symptoms Hematologic/Lymphatic: Reports: No symptoms All Other Systems: Reviewed and Negative Past Medical History - Past Medical History Previously Healthy: No Endocrine: Reports: DM 2 Cardiovascular: Reports: Hypertension Respiratory: Reports: None Hematological: Reports: Anemia Gastrointestinal: Reports: GERD Genitourinary: Reports: None Neuro/Psych: Reports: Anxiety, Depression Musculoskeletal: Reports: Back Pain, Joint Pain Cancer: Reports: None Last Menstrual Period: unknown - Surgical History General Surgical History: Reports: None - Family History Family History: Reports: None - Social History Smoking Status: Current every day smoker, Heavy tobacco smoker Hx Substance Use: Yes Alcohol Screening: None Physical Exam - Physical Exam Appearance: Obese Ill-appearing: Mild Pain Distress: None Eyes: ROM, EOMI, Conjunctiva clear ENT: Ears normal, Nose normal, Oropharynx normal Neck: Supple Respiratory: Airway patent, Breath sounds equal, Wheezes Cardiovascular: RRR, Pulses normal, No rub, No murmur GI/: Soft, Nontender, No masses, Bowel sounds normal, No Organomegaly Musculoskeletal: Normal strength, ROM intact, No edema, No calf tenderness Skin: Warm, Dry, Normal color Neurological: Sensation intact, Motor intact, Reflexes intact, Cranial nerves intact, Alert, Oriented Psychiatric: Affect appropriate, Mood appropriate Interpretation - Radiology Interpretation Exam Interpreted: CXR Xray Comments: Early pneumonia Re-Evaluation - Re-Evaluation Time of Re-Evaluation: 18:20 Status: Improved Vital Signs Stable: Yes Appearance: NAD Lungs: Other (scattered wheezing posteriorly/over all improved) Skin: Warm and Dry Neuro: Alert and Oriented X3 CV: RRR Critical Care Note - Critical Care Note Total Time (mins): 60 Course - Course Hematology/Chemistry: 09/26/18 17:24 09/26/18 17:24 Orders, Labs, Meds: Lab Review 09/26/18 09/26/18 17:24 17:24 WBC 5.18 RBC 5.21 Hgb 15.4 Hct 47.2 H MCV 90.6 MCH 29.6 MCHC 32.6 RDW Coeff of Tia 13.7 Plt Count 143 Immature Gran % (Auto) 1.2 Neut % (Auto) 61.3 Lymph % (Auto) 22.8 [place] % (Auto) 12.2 H Eos % (Auto) 1.7 Baso % (Auto) 0.8 Immature Gran # (Auto) 0.1 Neut # (Auto) 3.2 Lymph # (Auto) 1.2 [place] # (Auto) 0.6 Eos # (Auto) 0.1 Baso # (Auto) 0.0 Sodium 134.8 Potassium 4.07 Chloride 96.1 L Carbon Dioxide 29.2 Anion Gap 13.57 BUN 8.7 Creatinine 0.46 L Estimated GFR (MDRD) 141.00 BUN/Creatinine Ratio 18.91 Glucose 225.7 H Calcium 9.37 Total Bilirubin 0.49 AST 18.8 ALT 22.8 Alkaline Phosphatase 104.8 Troponin I < 0.012 Total Protein 7.09 Albumin 4.46 Globulin 2.63 Albumin/Globulin Ratio 1.69 Orders Category Date Time Status EKG-(ED ONLY) Stat CARDIO 09/26/18 17:13 Completed NEBULIZER TREATMENT Stat CARDIO 09/26/18 17:16 Completed IV [ED IV/MEDIPORT/POWERPORT] .ONCE EMERGENCY 09/26/18 17:18 Active BLOOD CULTURE Stat LAB 09/26/18 18:30 Received CBC W/ AUTO DIFF Stat LAB 09/26/18 17:24 Completed CMP [COMPREHENSIVE METABOLIC PANEL] Stat LAB 09/26/18 17:24 Completed SPUTUM CULTURE Stat LAB 09/26/18 17:14 Uncollected TROPONIN I Stat LAB 09/26/18 17:24 Completed 0.9 % Sodium Chloride [Saline Flush] MEDS 09/26/18 17:18 Ordered 1 syr IVF PRN PRN Ceftriaxone Sodium [Rocephin] MEDS 09/26/18 18:47 Stat 1 gm IM ONCE STA Ipratropium/Albuterol Neb [Duoneb] MEDS 09/26/18 17:17 Discontinued 1 vial NEB ONCE STA Lidocaine HCl/Pf [Lidocaine HCl 1% Sdv] MEDS 09/26/18 18:47 Stat 2.1 ml IM ONCE STA Methylprednisolone Sod Succ/Pf [Solu-Medrol 125 mg] MEDS 09/26/18 17:17 Discontinued 125 mg IVP ONCE STA CHEST, 2 VIEWS PA & LAT Stat RADS 09/26/18 17:15 Completed Medications Generic Name Dose Route Start Last Admin Trade Name Freq PRN Reason Stop Dose Admin Sodium Chloride 1 syr 09/26/18 17:18 09/26/18 17:59 Saline Flush IVF 1 syr PRN PRN Administration To flush IV Discontinued Medications Generic Name Dose Route Start Last Admin Trade Name Freq PRN Reason Stop Dose Admin Albuterol/Ipratropium 1 vial 09/26/18 17:17 09/26/18 17:25 Duoneb NEB 09/26/18 17:18 1 vial ONCE STA Administration Methylprednisolone Sodium Succinate 125 mg 09/26/18 17:17 09/26/18 17:56 Solu-Medrol 125 Mg IVP 09/26/18 17:18 125 mg ONCE STA Administration Vital Signs: Temp Pulse Resp BP Pulse Ox 09/26/18 16:08 96.8 F L 84 22 182/91 H 93 L Departure - Departure Time of Disposition: 18:35 Disposition: HOME SELF-CARE Discharge Problem: COPD with acute exacerbation, Pneumonia Instructions: Viral Pneumonia (ED), COPD (Chronic Obstructive Pulmonary Disease ) (ED) Condition: Stable Pt referred to PMD for follow-up: Yes IPMP verified?: No Additional Instructions: Remain on nebs Mucinex 1 twice daily Take antibiotic as directed See PCP in 1 wk Prescriptions: Amoxicillin/Potassium Clav [Augmentin 875-125 Tablet] 1 each PO BID #20 tablet Guaifenesin [Mucinex] 600 mg PO BID #20 tab.er.12h Allergies/Adverse Reactions: Allergies fluoxetine HCl [From Prozac] Allergy (Verified 09/26/18 16:17) acetaminophen [From Lortab] Adverse Reaction (Verified 09/26/18 16:17) codeine Adverse Reaction (Verified 09/26/18 16:17) duloxetine HCl [From Cymbalta] Adverse Reaction (Verified 09/26/18 16:17) hydrochlorothiazide [From Dyazide] Adverse Reaction (Verified 09/26/18 16:17) hydrocodone bitartrate [From Lortab] Adverse Reaction (Verified 09/26/18 16:17) meperidine HCl [From Demerol] Adverse Reaction (Verified 09/26/18 16:17) propoxyphene napsylate [From Darvocet-N] Adverse Reaction (Verified 09/26/18 16: 17) topiramate [From Topamax] Adverse Reaction (Verified 09/26/18 16:17) tramadol HCl [From Ultram] Adverse Reaction (Verified 09/26/18 16:17) trandolapril [From Tarka] Adverse Reaction (Verified 09/26/18 16:17) triamterene [From Dyazide] Adverse Reaction (Verified 09/26/18 16:17) verapamil HCl [From Tarka] Adverse Reaction (Verified 09/26/18 16:17) DIAZIDE Adverse Reaction (Uncoded 07/13/17 21:48) Home Medications: Ambulatory Orders Lovastatin [Mevacor] 40 mg PO BEDTIME 11/19/13 Metoprolol Tartrate [Lopressor] 100 mg PO BID 11/19/13 Albuterol Sulfate [Proventil Hfa] 2 puff IH BID PRN 11/04/15 Aspirin [Aspirin EC] 81 mg PO DAILYWM 11/04/15 Clopidogrel Bisulfate [Plavix] 75 mg PO DAILY 11/04/15 Pramipexole Di-HCl [Mirapex] 1 mg PO BID 03/23/16 Phenylephrine/Dm/Acetaminop/GG [Mucinex Lwlb-Tcn-Ikxrujdarg Lq] 177 ml PO PRN Tiotropium [place] [Spiriva Respimat] 4 gm IH DAILY 03/26/18 Citalopram Hydrobromide [Citalopram Hbr] 60 mg PO DAILY 09/23/18 Amoxicillin/Potassium Clav [Augmentin 875-125 Tablet] 1 each PO BID #20 tablet 09/26/18 Guaifenesin [Mucinex] 600 mg PO BID #20 tab.er.12h 09/26/18 Disposition Discussed With: Patient
[2018-09-26] MEDS ORDERED: DUONEB NEB STA (17:17)
[2018-09-26] MEDS ORDERED: SOLU-MEDROL 125 MG IVP STA (17:17)
--- NOTE | 2018-09-26 17:59 | DI ---
EXAM: Two-view chest HISTORY: Shortness of breath COMPARISON: Two-view chest 04/29/2018 FINDINGS: The cardiac silhouette is normal in size.. Atherosclerotic changes are seen involving the aortic arch. Minimal opacity is noted posteriorly on the lateral view which may represent a small f ocus of infiltrate, likely at the right lung base. There is no evidence of effusion. Degenerative c hanges are seen in the mid dorsal spine IMPRESSION: Questionable early infiltrate right lung base
[2018-09-26] MEDS ORDERED: ROCEPHIN 1 GM in SODIUM CHLORIDE 50 ML IV STA (18:25)
[2018-09-26] MEDS ORDERED: ROCEPHIN IM STA (18:47)
[2018-09-26] MEDS ORDERED: LIDOCAINE HCL 1% SDV IM STA (18:47)
== END 2018-09-26 18:55 | disposition home or self-care (01) ==
LOC: ED 16:06
DX: R06.02 Shortness of breath (principal); R09.89 Other specified symptoms and signs involving the circulatory and respiratory systems; R06.00 Dyspnea, unspecified; R05 Cough; R06.2 Wheezing; R09.81 Nasal congestion; R53.1 Weakness; Z72.0 Tobacco use; J44.1 Chronic obstructive pulmonary disease with (acute) exacerbation; J18.9 Pneumonia, unspecified organism
CPT/HCPCS: 36415; 80053; 84484; 85025; 87040; 93005; 93010; 94640; 96374; 99283

== ENCOUNTER 2019-09-06 17:43 | Observation (INO) ==
[2019-09-06 17:50] VITALS: BMI 56.3
--- NOTE | 2019-09-06 18:27 | ED.PDOC ---
General ED Provider: Dr. TIFFANY CARBONE Chief Complaint: Abscess Stated Complaint: Pain in [place] gluteal region-hx of previous abscess Time Seen by Physician: 18:15 Mode of Arrival: Wheelchair Information Source: Patient Nursing and Triage Documentation Reviewed and Agree: Yes Does patient meet sepsis criteria?: No System Inflammatory Response Syndrome: Not Applicable Sepsis Protocol: For patient's 13 years and over: Temp is 96.8 and below OR 101 and greater Pulse >90 BPM Resp >20/minute Acutely Altered Mental Status Are patient's symptoms suggestive of a new infection, such as: -Pneumonia -Skin, Soft Tissue -Endocarditis -UTI -Bone, Joint Infection -Implantable Device -Acute Abdominal Infection -Wound Infection -Meningitis -Blood Stream Catheter Infection -Unknown Skin Complaint Exam Skin/Soft Tissue Complaint/Exam Onset/Duration: 36 hrs Symptoms Are: Still present Timing: Constant Initial Severity: Mild Current Severity: Moderate Location: inner gluteal region Character: Reports Redness, Swelling, Raised and Painful Aggravating: Reports Touch Alleviating: Reports None Associated Signs and Symptoms: Reports Drainage, Bruising, Tenderness and Red streaks Related History: Reports Similar episode Recent Exposure to Others w/Similar Symptoms: No Skin Findings: Present Erythema, Induration and Pustules Joint Tenderness Present: No Differential Diagnoses: Abscess, Cellulitis and Infection Review of Systems Review Of Systems Constitutional: Reports Weakness Eyes: Reports No symptoms Ears, Nose, Mouth, Throat: Reports No symptoms Respiratory: Reports No symptoms Cardiac: Reports No symptoms GI: Reports No symptoms : Reports No symptoms Musculoskeletal: Reports No symptoms Skin: Reports Lesions Neurological: Reports No symptoms Endocrine: Reports No symptoms Hematologic/Lymphatic: Reports No symptoms All Other Systems: Reviewed and Negative [facility] Medical History Bipolar disorder Chronic arthritis Fibromyalgia Gastroesophageal reflux disease Hypertension Insulin dependent type 1 diabetes mellitus Migraines Neuropathy Osteoarthritis Family History Mother Diabetes Kidney disorder FATHER Diabetes Cardiac disease BROTHER Diabetes Female Reproductive History Menstrual Hx Hysterectomy: Yes Hx Tubal Ligation: Yes Physical Exam Physical Exam Appearance: Reports Well-appearing and Obese Ill-appearing: Mild Pain Distress: Moderate Eyes: Reports ROM, EOMI and Conjunctiva clear ENT: Reports Ears normal, Nose normal and Oropharynx normal Respiratory: Reports Airway patent, Breath sounds clear, Breath sounds equal and Respirations nonlabored Cardiovascular: Reports RRR, Pulses normal, No rub and No murmur GI/: Reports Soft, Nontender, No masses, Bowel sounds normal, No Organomegaly and Tender (area of induration inner gluteal region ) Musculoskeletal: Reports Normal strength, ROM intact, No edema and No calf tenderness Skin: Reports Warm, Dry and Normal color Neurological: Reports Sensation intact, Motor intact, Reflexes intact, Cranial nerves intact, Alert and Oriented Psychiatric: Reports Affect appropriate and Mood appropriate Physician Notification Case Discussed Physician Notified: Hospitalist-accepts admission Time of Notification: 19:37 Critical Care Note Critical Care Note Total Time (mins): 0 Course Course Hematology/Chemistry: 09/06/19 18:43 09/06/19 18:43 Orders, Labs, Meds: Lab Review 09/06/19 09/06/19 18:43 18:43 WBC 16.06 H RBC 5.26 Hgb 15.7 Hct 48.1 H MCV 91.4 MCH 29.8 MCHC 32.6 RDW Coeff of Tia 14.2 Plt Count 141 Immature Gran % (Auto) 0.7 Neut % (Auto) 83.1 H Lymph % (Auto) 9.7 L [place] % (Auto) 5.1 Eos % (Auto) 1.1 Baso % (Auto) 0.3 Immature Gran # (Auto) 0.1 Neut # (Auto) 13.3 H Lymph # (Auto) 1.6 [place] # (Auto) 0.8 Eos # (Auto) 0.2 Baso # (Auto) 0.1 Sodium 133.6 L Potassium 4.52 Chloride 90.8 L Carbon Dioxide 37.0 H Anion Gap 10.32 BUN 14.8 Creatinine 0.45 L Estimated GFR (MDRD) 144.00 BUN/Creatinine Ratio 32.88 Glucose 375.6 H Calcium 8.80 Total Bilirubin 0.41 AST 20.5 ALT 15.0 Alkaline Phosphatase 138.2 H Total Protein 6.58 Albumin 3.54 Globulin 3.04 Albumin/Globulin Ratio 1.16 Orders Category Date Time Status IV [ED IV/MEDIPORT/POWERPORT] .ONCE EMERGENCY 09/06/19 18:30 Active CBC W/ AUTO DIFF Stat LAB 09/06/19 18:43 Completed CMP [COMPREHENSIVE METABOLIC PANEL] Stat LAB 09/06/19 18:43 Completed WOUND CULTURE Stat LAB 09/06/19 18:27 Uncollected 0.9 % Sodium Chloride [Saline Flush] MEDS 09/06/19 18:29 Active 1 syr IVF PRN PRN Cefazolin Sodium [Ancef] MEDS 09/06/19 18:47 Discontinued 1 gm .ROUTE .STK-MED ONE Cefazolin Sodium [Ancef] 1 gm MEDS 09/06/19 18:33 Discontinued 0.9 % Sodium Chloride [Sodium Chloride] 50 ml IV ONCE Lidocaine HCl/Pf [Lidocaine HCl 1% Sdv] MEDS 09/06/19 18:28 Discontinued 5 ml SUBCUT ONCE STA Morphine Sulfate [Morphine 2 mg/ml Syringe] MEDS 09/06/19 18:35 Discontinued 2 mg IVP ONCE STA Ringers Lactated Solution [Lactated Ringers] 1,000 ml MEDS 09/06/19 18:29 Active IV 100 mls/hr Medications Generic Name Dose Route Start Last Admin Trade Name Freq PRN Reason Stop Dose Admin Lactated Ringer's 1,000 mls @ 100 mls/hr 09/06/19 18:29 09/06/19 18:46 Lactated Ringers IV 09/07/19 04:28 100 mls/hr .Q10H STA Administration Sodium Chloride 1 syr 09/06/19 18:29 Saline Flush IVF PRN PRN To flush IV Discontinued Medications Generic Name Dose Route Start Last Admin Trade Name Freq PRN Reason Stop Dose Admin Cefazolin Sodium 1 gm/ Sodium 50 mls @ 75 mls/hr 09/06/19 18:33 09/06/19 18:52 Chloride IV 09/06/19 19:12 75 mls/hr ONCE ONE Administration Lidocaine HCl 5 ml 09/06/19 18:28 Lidocaine Hcl 1% Sdv SUBCUT 09/06/19 18:29 ONCE STA Morphine Sulfate 2 mg 09/06/19 18:35 09/06/19 18:44 Morphine 2 Mg/Ml Syringe IVP 09/06/19 18:36 2 mg ONCE STA Administration Vital Signs: Temp Pulse Resp BP Pulse Ox 09/06/19 17:52 100 H 97 09/06/19 17:48 97.8 F 106 H 20 137/78 89 L Discharge Plan Discharge Patient Disposition: ADMITTED INPATIENT Discharge Problem: Abscess and cellulitis of gluteal region, Type 1 diabetes mellitus, Hypertension, COPD (chronic obstructive pulmonary disease) ED Provider: TIFAFNY CARBONE Condition: Stable
[2019-09-06] MEDS ORDERED: LIDOCAINE HCL 1% SDV SUBCUT STA (18:28)
[2019-09-06] MEDS ORDERED: LACTATED RINGERS 1,000 ML IV STA (18:29)
[2019-09-06] MEDS ORDERED: ANCEF 1 GM in SODIUM CHLORIDE 50 ML IV ONE (18:33)
[2019-09-06] MEDS ORDERED: MORPHINE 2 MG/ML SYRINGE IVP STA (18:35)
[2019-09-06 18:47] LABS: HEMATOCRIT 48.1 % (37.0-47.0)
[2019-09-06] MEDS ORDERED: ANCEF ONE (18:47)
[2019-09-06] MEDS: DILAUDID 1 MG/ML SYRINGE IVP PRN (20:03)
[2019-09-06] MEDS ORDERED: NITROSTAT SL PRN (21:16)
[2019-09-06] MEDS ORDERED: ROBITUSSIN DM SYRUP PO PRN (21:39)
[2019-09-06] MEDS: LAMICTAL PO SCH (22:04)
[2019-09-06] MEDS: LOPRESSOR PO SCH (22:04)
[2019-09-06] MEDS: LANTUS SUBCUT SCH (22:05)
[2019-09-06] MEDS: HUMULIN R SUBCUT PRN (22:05)
[2019-09-06] MEDS: MIRAPEX PO SCH (22:06)
[2019-09-06] MEDS: NICODERM 21 MG TD SCH (22:28)
[2019-09-06] MEDS ORDERED: CLEOCIN 600 MG/50 ML D5W 600 MG/50 ML BAG IV SCH (23:00)
[2019-09-06] MEDS: CLEOCIN 600 MG/50 ML D5W 600 MG/50 ML BAG IV SCH (23:03)
[2019-09-07] MEDS: DILAUDID 1 MG/ML SYRINGE IVP PRN (04:11)
[2019-09-07] MEDS: HUMULIN R SUBCUT PRN ×3 (06:03→20:34)
[2019-09-07 08:30] LABS: HEMATOCRIT 49.1 % (37.0-47.0)
[2019-09-07] MEDS: CLEOCIN 600 MG/50 ML D5W 600 MG/50 ML BAG IV SCH ×2 (08:35→20:29)
[2019-09-07] MEDS: NYSTOP POWDER TP SCH ×3 (08:36→20:41)
[2019-09-07] MEDS: NICODERM 21 MG TD SCH (08:36)
[2019-09-07] MEDS: MIRAPEX PO SCH ×2 (08:37→20:30)
[2019-09-07] MEDS: ASPIRIN EC PO SCH (08:37)
[2019-09-07] MEDS: CELEXA PO SCH (08:37)
[2019-09-07] MEDS: SYMBICORT 80-4.5 MCG INHALER IH SCH ×2 (08:37→20:28)
[2019-09-07] MEDS: FLONASE NAS SCH (08:37)
[2019-09-07] MEDS: LOPRESSOR PO SCH ×2 (08:38→20:30)
[2019-09-07] MEDS: NEURONTIN PO SCH ×6 (08:38→20:30)
[2019-09-07] MEDS: MEVACOR PO SCH (08:38)
[2019-09-07] MEDS: PLAVIX PO SCH (08:38)
--- NOTE | 2019-09-07 14:13 | PCM ---
Chief Complaint Chief Complaint: painful draining abscess gluteal fold History of Present Illness History of Present Illness: Ms. Rutledge is a 58 year old female with diabetes w/insulin therapy, HTN, COPD w/oxygen dependence, ALLISON on trilogy, CAD w/[place] x 2 with stenting, GERD, fibromyalgia, and recent diagnosis of hemochromatosis s/p her first phlebotomy 2 days ago, who presents to ED with c/o painful draining abscess in gluteal fold adjacent to rectum. Pt found to have elevated white count but no fever. I&D of abscess performed in ED with report of very small to scant amount of purulent/serosanquinous drainage. wound bed not deep enough for packing. Pt given cefazolin IV x 1 in ED. Pt also received morphine and dilaudid for pain in ED. Pt admitted to hospitalist service for further care. Pt interviewed and examined at the bedside in the medsurg unit. Pt states she has had this type of abscess before in the same area and in other areas. Pt states since she is so heavy she sweats a lot and has problems with yeast and she feels this contributes to her getting the abscesses. she states she had been seen by PCP about this problem but the abscess seemed to open on its own and she had "a lot of drainage" for a day before coming to emergency. pt admits that her diabetes is not well controlled with values >300 most of the time. she is on jardiance, trajenta, metformin, lantus and sliding scale insulin. Review of Systems Constitutional: Reports sweats Eyes: Denies blurred vision, double-vision, discharge, itching, pain, redness, photophobia and other Nose: Denies bleeding, congestion, discharge and other Throat: Denies pain, swelling, voice change and other Mouth: Denies bleeding, pain, swelling and other Respiratory: Reports shortness of air Cardiovascular: Reports orthopnea; Denies chest pain, left arm pain, diaphoresis, PND, edema, palpitations, syncope and other Gastrointestinal: Denies abdominal pain, nausea, vomiting, diarrhea, melena, hematemesis, hematochezia, dysphagia, constipation and other Genitourinary: Denies dysuria, hematuria, frequency, incontinence, flank pain, vaginal discharge, abnormal bleeding, pelvic pain and other Neurological: Denies headache, dizziness, seizure, numbness, weakness, speech difficulty, problems with walking, tremor, fainting and other Musculoskeletal: Denies pain, swelling in joints and other Skin: Reports wounds (abscess; cellulitis) Immunology: Reports frequent infections Hematology: Denies easy bruising, easy bleeding, swollen glands and other Endocrine: Reports weight changes (gaining weight over past year); Denies cold intolerance, heat intolerance, excessive thirst, excessive hunger, polyuria and other Psychiatric: Reports depression and other (bipolar disorder) Habits: Reports tobacco use (down from 3ppd to 1ppd) Allergies Allergies Allergy/AdvReac Type Severity Reaction Status Date / Time fluoxetine HCl [From Prozac] Allergy Verified 09/06/19 17:55 acetaminophen [From Lortab] AdvReac Verified 09/06/19 17:55 codeine AdvReac Verified 09/06/19 17:55 duloxetine HCl AdvReac Verified 09/06/19 17:55 [From Cymbalta] hydrochlorothiazide AdvReac Verified 09/06/19 17:55 [From Dyazide] hydrocodone bitartrate AdvReac Verified 09/06/19 17:55 [From Lortab] meperidine HCl [From Demerol] AdvReac Verified 09/06/19 17:55 propoxyphene napsylate AdvReac Verified 09/06/19 17:55 [From Darvocet-N] topiramate [From Topamax] AdvReac Verified 09/06/19 17:55 tramadol HCl [From Ultram] AdvReac Verified 09/06/19 17:55 trandolapril [From Tarka] AdvReac Verified 09/06/19 17:55 triamterene [From Dyazide] AdvReac Verified 09/06/19 17:55 verapamil HCl [From Tarka] AdvReac Verified 09/06/19 17:55 DIAZIDE AdvReac Uncoded 07/13/17 21:48 PFSH Medical History (Updated 09/07/19 @ 14:13 by SUE LOO) Bipolar disorder Bipolar disorder with depression Chronic arthritis Fibromyalgia Gastroesophageal reflux disease Hypertension Insulin dependent type 1 diabetes mellitus Migraines Neuropathy ALLISON and COPD overlap syndrome Osteoarthritis Surgical History (Updated 09/06/19 @ 20:27 by JEANETTE HERNANDEZ RN) Cataract extraction and insertion of intraocular lens History of breast biopsy History of dental surgery History of gastrointestinal surgery History of tubal ligation Lumpectomy of breast Status post appendectomy Status post cholecystectomy (~1991) Status post hysterectomy Status post tonsillectomy Status post tonsillectomy and adenoidectomy Family History (Updated 09/07/19 @ 14:26 by SUE GRINDER OPERATOR) Mother Diabetes Kidney disorder FATHER Diabetes Cardiac disease Cancer BROTHER Diabetes SISTER Cancer Social History (Updated 09/06/19 @ 20:27 by JEANETTE HERNANDEZ RN) Housing: house Number of children: 2 Number of grandchildren: 9 Medications Medications: Medications Generic Name Dose Route Start Last Admin Trade Name Freq PRN Reason Stop Dose Admin Aspirin 81 mg 09/07/19 08:00 09/07/19 08:37 Aspirin Ec PO 81 mg DAILYWM JYOTSNA Administration Budesonide/Formoterol Fumarate 2 puff 09/07/19 09:00 09/07/19 08:37 Symbicort 80-4.5 Mcg Inhaler IH 2 puff BID JYOTSNA Administration Citalopram Hydrobromide 60 mg 09/07/19 09:00 09/07/19 08:37 Celexa PO 60 mg DAILY JYOTSNA Administration Clopidogrel Bisulfate 75 mg 09/07/19 09:00 09/07/19 08:38 Plavix PO 75 mg DAILY JYOTSNA Administration Fluticasone Propionate 2 spray 09/07/19 09:00 09/07/19 08:37 Flonase LELA 2 spray DAILY JYOTSNA Administration Gabapentin 600 mg 09/07/19 09:00 09/07/19 08:38 Neurontin PO 600 mg TID JYOTSNA Administration Gabapentin 200 mg 09/07/19 09:00 09/07/19 09:03 Neurontin PO 200 mg TID JYOTSNA Administration Guaifenesin/Dextromethorphan 10 ml 09/06/19 21:39 Robitussin Dm Syrup PO Q4H PRN cough Clindamycin Phosphate 600 mg in 50 mls @ 75 mls/hr 09/06/19 23:00 09/07/19 08:35 Cleocin 600 Mg/50 Ml D5w IV 09/09/19 22:59 75 mls/hr BID JYOTSNA Administration Insulin Glargine 100 unit 09/06/19 21:30 09/06/19 22:05 Lantus SUBCUT 100 unit BEDTIME JYOTSNA Administration Insulin Human Regular 0 unit 09/06/19 21:24 09/07/19 06:03 Humulin R SUBCUT 8 unit PRN PRN Administration Hyperglycemia Lamotrigine 75 mg 09/06/19 21:30 09/06/19 22:04 Lamictal PO 75 mg BEDTIME JYOTSNA Administration Lovastatin 40 mg 09/07/19 09:00 09/07/19 08:38 Mevacor PO 40 mg DAILY JYOTSNA Administration Metoprolol Tartrate 100 mg 09/06/19 21:00 09/07/19 08:38 Lopressor PO 100 mg BID JYOTSNA Administration Nicotine 1 patch 09/06/19 22:30 09/07/19 08:36 Nicoderm 21 Mg TD 1 patch DAILY JYOTSNA Administration Nitroglycerin 0.4 mg 09/06/19 21:16 Nitrostat SL Q5M PRN chest pain Nystatin 1 applic 09/07/19 09:00 09/07/19 08:36 Nystop Powder TP Not Given BID JYOTSNA Pramipexole Dihydrochloride 1 mg 09/06/19 21:30 09/07/19 08:37 Mirapex PO 1 mg BID JYOTSNA Administration Sodium Chloride 1 syr 09/07/19 13:00 09/07/19 12:05 Saline Flush IVF 1 syr Q8HR JYOTSNA Administration Body Composition Height: 5 ft 7 in Weight: 360 lb Body Mass Index (BMI): 56.3 Vital Signs Temperature: 98.1 F Pulse Rate: 68 Respiratory Rate: 20 Blood Pressure: 134/89 O2 Sat by Pulse Oximetry: 96 Physical Examination Appearance: Reports Well-appearing, No pain distress and Obese (BMI 56.4) Eyes: Reports ROM, EOMI and Conjunctiva clear Neck: Supple Respiratory: Reports Airway patent, Breath sounds clear, Breath sounds equal and Respirations nonlabored Cardiovascular: Reports RRR and Pulses normal GI/: Reports Soft, Nontender, Bowel sounds normal and Hepatomegaly (unable to assess properly due to girth) Musculoskeletal: Reports ROM intact and No edema Skin: Reports Warm (slightly moist; pt states she perspires most of the time) and Normal color Neurological: Reports Sensation intact, Motor intact and Cranial nerves intact Psychiatric: Reports Affect appropriate and Mood appropriate Lab/Tests/Diagnostic Imaging Lab/Tests/Diagnostic Imaging: Lab Review 09/06/19 09/06/19 09/07/19 18:43 18:43 08:02 WBC 16.06 H 16.87 H RBC 5.26 5.28 Hgb 15.7 15.6 Hct 48.1 H 49.1 H MCV 91.4 93.0 MCH 29.8 29.5 MCHC 32.6 31.8 RDW Coeff of Tia 14.2 14.3 Plt Count 141 144 Immature Gran % (Auto) 0.7 Neut % (Auto) 83.1 H Lymph % (Auto) 9.7 L Wise % (Auto) 5.1 Eos % (Auto) 1.1 Baso % (Auto) 0.3 Immature Gran # (Auto) 0.1 Neut # (Auto) 13.3 H Lymph # (Auto) 1.6 Wise # (Auto) 0.8 Eos # (Auto) 0.2 Baso # (Auto) 0.1 Sodium 133.6 L Potassium 4.52 Chloride 90.8 L Carbon Dioxide 37.0 H Anion Gap 10.32 BUN 14.8 Creatinine 0.45 L Estimated GFR (MDRD) 144.00 BUN/Creatinine Ratio 32.88 Glucose 375.6 H Calcium 8.80 Total Bilirubin 0.41 AST 20.5 ALT 15.0 Alkaline Phosphatase 138.2 H Total Protein 6.58 Albumin 3.54 Globulin 3.04 Albumin/Globulin Ratio 1.16 Orders Category Date Time Status ADMIT OBSERVATION [PLACE PATIENT OBSERVATION] .TO ADMISSION 09/06/19 21:59 Active MEDSURG (NON-MONITORED BED) OXYGEN Routine CARDIO 09/06/19 20:00 Active BLOOD GLUCOSE MONITORING 0630,1100,1700,2100 CARE 09/06/19 21:27 Active GIVE HS SNACK 2100 CARE 09/06/19 22:00 Active ADA 1800 EBONY. DIET DIETARY 09/07/19 Breakfast Ordered HS SNACK DIETARY 09/06/19 Dinner Ordered IV [ED IV/MEDIPORT/POWERPORT] .ONCE EMERGENCY 09/06/19 18:30 Active CBC HEMOGRAM ONLY Routine LAB 09/07/19 08:02 Completed CBC W/ AUTO DIFF Stat LAB 09/06/19 18:43 Completed CMP [COMPREHENSIVE METABOLIC PANEL] Stat LAB 09/06/19 18:43 Completed WOUND CULTURE Stat LAB 09/06/19 19:00 Received 0.9 % Sodium Chloride [Saline Flush] MEDS 09/06/19 18:29 Discontinued 1 syr IVF PRN PRN 0.9 % Sodium Chloride [Saline Flush] MEDS 09/07/19 13:00 Active 1 syr IVF Q8HR Aspirin [Aspirin EC] MEDS 09/07/19 08:00 Active 81 mg PO DAILYWM Budesonide/Formoterol Fumarate [Symbicort 80-4.5 Mcg MEDS 09/07/19 09:00 Active Inhaler] 2 puff IH BID Cefazolin Sodium [Ancef] MEDS 09/06/19 18:47 Discontinued 1 gm .ROUTE .STK-MED ONE Cefazolin Sodium [Ancef] 1 gm MEDS 09/06/19 18:33 Discontinued 0.9 % Sodium Chloride [Sodium Chloride] 50 ml IV ONCE Citalopram Hydrobromide [Celexa] MEDS 09/07/19 09:00 Active 60 mg PO DAILY Clindamycin Phosphate/D5w [Cleocin 600 mg/50 ml D5w] MEDS 09/06/19 23:00 Active 600 mg in 50 ml IV BID Clindamycin Phosphate/D5w [Cleocin 600 mg/50 ml D5w] MEDS 09/06/19 23:00 Discontinued 600 mg in 50 ml IV Q8HR Clopidogrel Bisulfate [Plavix] MEDS 09/07/19 09:00 Active 75 mg PO DAILY Fluticasone Propionate [Flonase] MEDS 09/07/19 09:00 Active 2 spray LELA DAILY Gabapentin [Neurontin] MEDS 09/07/19 09:00 Active 200 mg PO TID Gabapentin [Neurontin] MEDS 09/07/19 09:00 Active 600 mg PO TID Guaifenesin/Dextromethorphan [Robitussin Dm Syrup] MEDS 09/06/19 21:39 Active 10 ml PO Q4H PRN Hydromorphone HCl [Dilaudid 1 mg/ml Syringe] MEDS 09/06/19 19:57 Discontinued 1 mg IVP Q4HR PRN Insulin Glargine,Hum.rec.anlog [Lantus] MEDS 09/06/19 21:30 Active 100 unit SUBCUT BEDTIME Insulin Regular, Human [Humulin R] MEDS 09/06/19 21:24 Active See Dose Instructions SUBCUT PRN PRN Lamotrigine [Lamictal] MEDS 09/06/19 21:30 Active 75 mg PO BEDTIME Lidocaine HCl/Pf [Lidocaine HCl 1% Sdv] MEDS 09/06/19 18:28 Discontinued 5 ml SUBCUT ONCE STA Lovastatin [Mevacor] MEDS 09/07/19 09:00 Active 40 mg PO DAILY Metoprolol Tartrate [Lopressor] MEDS 09/06/19 21:00 Active 100 mg PO BID Morphine Sulfate [Morphine 2 mg/ml Syringe] MEDS 09/06/19 18:35 Discontinued 2 mg IVP ONCE STA Nicotine 21 mg [Nicoderm 21 mg] MEDS 09/06/19 22:30 Active 1 patch TD DAILY Nitroglycerin [Nitrostat] MEDS 09/06/19 21:16 Active 0.4 mg SL Q5M PRN Nystatin [Nystop Powder] MEDS 09/07/19 09:00 Active 1 applic TP BID Pramipexole Di-HCl [Mirapex] MEDS 09/06/19 21:30 Active 1 mg PO BID Ringers Lactated Solution [Lactated Ringers] 1,000 ml MEDS 09/06/19 18:29 Discontinued IV 100 mls/hr RESUSCITATION STATUS Routine OTHERS 09/06/19 20:38 Ordered Medications Generic Name Dose Route Start Last Admin Trade Name Freq PRN Reason Stop Dose Admin Aspirin 81 mg 09/07/19 08:00 09/07/19 08:37 Aspirin Ec PO 81 mg DAILYWM JYOTSNA Administration Budesonide/Formoterol Fumarate 2 puff 09/07/19 09:00 09/07/19 08:37 Symbicort 80-4.5 Mcg Inhaler IH 2 puff BID JYOTSNA Administration Citalopram Hydrobromide 60 mg 09/07/19 09:00 09/07/19 08:37 Celexa PO 60 mg DAILY JYOTSNA Administration Clopidogrel Bisulfate 75 mg 09/07/19 09:00 09/07/19 08:38 Plavix PO 75 mg DAILY JYOTSNA Administration Fluticasone Propionate 2 spray 09/07/19 09:00 09/07/19 08:37 Flonase LELA 2 spray DAILY JYOTSNA Administration Gabapentin 600 mg 09/07/19 09:00 09/07/19 08:38 Neurontin PO 600 mg TID JYOTSNA Administration Gabapentin 200 mg 09/07/19 09:00 09/07/19 09:03 Neurontin PO 200 mg TID JYOTSNA Administration Guaifenesin/Dextromethorphan 10 ml 09/06/19 21:39 Robitussin Dm Syrup PO Q4H PRN cough Clindamycin Phosphate 600 mg in 50 mls @ 75 mls/hr 09/06/19 23:00 09/07/19 08:35 Cleocin 600 Mg/50 Ml D5w IV 09/09/19 22:59 75 mls/hr BID JYOTSNA Administration Insulin Glargine 100 unit 09/06/19 21:30 09/06/19 22:05 Lantus SUBCUT 100 unit BEDTIME JYOTSNA Administration Insulin Human Regular 0 unit 09/06/19 21:24 09/07/19 06:03 Humulin R SUBCUT 8 unit PRN PRN Administration Hyperglycemia Lamotrigine 75 mg 09/06/19 21:30 09/06/19 22:04 Lamictal PO 75 mg BEDTIME JYOTSNA Administration Lovastatin 40 mg 09/07/19 09:00 09/07/19 08:38 Mevacor PO 40 mg DAILY JYOTSNA Administration Metoprolol Tartrate 100 mg 09/06/19 21:00 09/07/19 08:38 Lopressor PO 100 mg BID [facility] Administration Nicotine 1 patch 09/06/19 22:30 09/07/19 08:36 Nicoderm 21 Mg TD 1 patch DAILY JYOTSNA Administration Nitroglycerin 0.4 mg 09/06/19 21:16 Nitrostat SL Q5M PRN chest pain Nystatin 1 applic 09/07/19 09:00 09/07/19 08:36 Nystop Powder TP Not Given BID [facility] Pramipexole Dihydrochloride 1 mg 09/06/19 21:30 09/07/19 08:37 Mirapex PO 1 mg BID JYOTSNA Administration Sodium Chloride 1 syr 09/07/19 13:00 09/07/19 12:05 Saline Flush IVF 1 syr Q8HR JYOTSNA Administration Discontinued Medications Generic Name Dose Route Start Last Admin Trade Name Freq PRN Reason Stop Dose Admin Hydromorphone HCl 1 mg 09/06/19 19:57 09/07/19 04:11 Dilaudid 1 Mg/Ml Syringe IVP 1 mg Q4HR PRN Administration MODERATE PAIN Lactated Ringer's 1,000 mls @ 100 mls/hr 09/06/19 18:29 09/06/19 18:46 Lactated Ringers IV 09/07/19 04:28 100 mls/hr .Q10H STA Administration Cefazolin Sodium 1 gm/ Sodium 50 mls @ 75 mls/hr 09/06/19 18:33 09/06/19 18:52 Chloride IV 09/06/19 19:12 75 mls/hr ONCE ONE Administration Clindamycin Phosphate 600 mg in 50 mls @ 75 mls/hr 09/06/19 23:00 09/06/19 22:33 Cleocin 600 Mg/50 Ml D5w IV 09/09/19 22:59 Not Given Q8HR JYOTSNA Lidocaine HCl 5 ml 09/06/19 18:28 Lidocaine Hcl 1% Sdv SUBCUT 09/06/19 18:29 ONCE STA Morphine Sulfate 2 mg 09/06/19 18:35 09/06/19 18:44 Morphine 2 Mg/Ml Syringe IVP 09/06/19 18:36 2 mg ONCE STA Administration Sodium Chloride 1 syr 09/06/19 18:29 Saline Flush IVF PRN PRN To flush IV Assessment (1) Abscess and cellulitis of gluteal region: Status: Acute Code(s): L02.31 - Cutaneous abscess of buttock; L03.317 - Cellulitis of buttock SNOMED Code(s): 830046212 (2) Type 1 diabetes mellitus: Status: Acute (3) Hypertension: Status: Acute Code(s): I10 - Essential (primary) hypertension SNOMED Code(s): 63104957 (4) COPD (chronic obstructive pulmonary disease): Status: Acute Code(s): J44.9 - Chronic obstructive pulmonary disease, unspecified SNOMED Code(s): 33898695 (5) ALLISON and COPD overlap syndrome: Status: Acute Code(s): G47.33 - Obstructive sleep apnea (adult) (pediatric); J44.9 - Chronic obstructive pulmonary disease, unspecified SNOMED Code(s): 47796076 (6) Bipolar disorder with depression: Status: Acute Code(s): F31.30 - Bipolar disorder, current episode depressed, mild or moderate severity, unspecified SNOMED Code(s): 58242719 Plan Plan: abscess/cellulitis gluteal fold region adjacent to rectum -leukocytosis; no fever -scant return per report of ED physician with I&D; not deep enough to pack area -pt given ancef in ED; started on IV clindamycin on unit; wound cx pending Diabetes I, uncontrolled on insulin therapy -jardiance and trajenta not contd as not on formulary and pt doesn't have with her -metformin is held; home dose lantus continued; SSI w/freqent glucose checks; diabetic diet; hypoglycemia protocol -cont gabapentin intertrigonal candidiasis multiple areas -cont hm nystatin; advised pt to use absorbent barriers to assist with control of moisture CAD/hx [place] x 2 w/stent -no c/o chest pain or worsening shortness of breath; monitor -continue statin, ASA, BB COPD, not in exarcerbation, oxygen dependent -cont hm inhaler and oxygen ALLISON using trilogy machine -cont O2 and trilogy when asleep bipolar disorder/depression -appropriate affect/mood currently; cont home meds to include lamictal and citalopram DVT PPx: lovenox CODE: full
[2019-09-07] MEDS: LAMICTAL PO SCH (20:29)
[2019-09-07] MEDS: LANTUS SUBCUT SCH (20:38)
[2019-09-07] MEDS ORDERED: TYLENOL PO STA (20:41)
[2019-09-08 04:57] LABS: HEMATOCRIT 48.3 % (37.0-47.0)
[2019-09-08 05:43] VITALS: BP 154/83; TEMP 98.4
[2019-09-08] MEDS: HUMULIN R SUBCUT PRN (05:43)
[2019-09-08] MEDS: NYSTOP POWDER TP SCH (08:14)
[2019-09-08] MEDS: FLONASE NAS SCH (08:14)
[2019-09-08] MEDS: SYMBICORT 80-4.5 MCG INHALER IH SCH (08:14)
[2019-09-08] MEDS: LOPRESSOR PO SCH (08:15)
[2019-09-08] MEDS: CELEXA PO SCH (08:15)
[2019-09-08] MEDS: ASPIRIN EC PO SCH (08:15)
[2019-09-08] MEDS: NEURONTIN PO SCH ×2 (08:15)
[2019-09-08] MEDS: PLAVIX PO SCH (08:16)
[2019-09-08] MEDS: MEVACOR PO SCH (08:16)
[2019-09-08] MEDS: NICODERM 21 MG TD SCH (08:16)
[2019-09-08] MEDS: MIRAPEX PO SCH (08:16)
--- NOTE | 2019-09-08 09:44 | PCM.DC ---
Final Diagnosis: primary: abscess/cellulitis gluteal fold adjacent to rectum leukocytosis rt to infection I&D of abscess in ED DM uncontrolled secondary: COPD not in exacerbation HTN, essential ALLISON/trilogy oxygen dependence bipolar disorder w/depression (1) Abscess and cellulitis of gluteal region: Status: Acute Code(s): L02.31 - Cutaneous abscess of buttock; L03.317 - Cellulitis of buttock SNOMED Code(s): 395448434 (2) Type 1 diabetes mellitus: Status: Acute (3) Hypertension: Status: Acute Code(s): I10 - Essential (primary) hypertension SNOMED Code(s): 28769496 (4) COPD (chronic obstructive pulmonary disease): Status: Acute Code(s): J44.9 - Chronic obstructive pulmonary disease, unspecified SNOMED Code(s): 64037090 (5) ALLISON and COPD overlap syndrome: Status: Acute Code(s): G47.33 - Obstructive sleep apnea (adult) (pediatric); J44.9 - Chronic obstructive pulmonary disease, unspecified SNOMED Code(s): 30723773 (6) Bipolar disorder with depression: Status: Acute Code(s): F31.30 - Bipolar disorder, current episode depressed, mild or moderate severity, unspecified SNOMED Code(s): 97502801 Reason for Hospitalization: History of Present Illness: Ms. Rutledge is a 58 year old female with diabetes w/insulin therapy, HTN, COPD w/oxygen dependence, ALLISON on trilogy, CAD w/[place] x 2 with stenting, GERD, fibromyalgia, and recent diagnosis of hemochromatosis s/p her first phlebotomy 2 days ago, who presents to ED with c/o painful draining abscess in gluteal fold adjacent to rectum. Pt found to have elevated white count but no fever. I&D of abscess performed in ED with report of very small to scant amount of purulent/serosanquinous drainage. wound bed not deep enough for packing. Pt given cefazolin IV x 1 in ED. Pt also received morphine and dilaudid for pain in ED. Pt admitted to hospitalist service for further care. Prognosis at Discharge: good Condition at Discharge: afebrile; wbc trending down; O2 sat (3% on 2 lpm nasal c annula; hemodynamically stable; deemed safe for discharge. Medications at Discharge: Ambulatory Orders Medication Instructions Recorded metoprolol tartrate 100 mg PO BID 11/19/13 aspirin 81 mg PO DAILYWM 11/04/15 pramipexole [Mirapex] 1 mg PO BID 03/23/16 nystatin 1 ea PO BID #2 dipti 09/06/17 fluticasone propionate 2 spray NS DAILY #3 spr 01/18/18 nitroglycerin 0.4 mg PO ONCE PRN #30 tab-cap 01/18/18 albuterol sulfate 1 am INHALATION 3-4XD PRN #2 bx 03/08/18 Mucinex Cold,Flu,Sore Throat 177 ml PO PRN PRN 03/26/18 budesonide-formoterol [Symbicort] 2 puff INHALATION BID #1 puff 04/16/18 clopidogrel [Plavix] 75 mg PO DAILY #90 tab-cap 07/08/18 metformin 1,000 mg PO BID 90 Days #180 07/11/18 tab-cap citalopram 60 mg PO DAILY 09/23/18 gabapentin 800 mg PO TID 30 Days #90 tab-cap 09/23/18 lamotrigine [Lamictal] 75 mg PO BEDTIME 30 Days #30 09/26/18 tab-cap lovastatin 40 mg PO DAILY 30 Days #30 tab-cap 09/26/18 Tradjenta 5 mg PO DAILY 30 Days #30 tab-cap 11/04/18 Lantus U-100 Insulin 100 unit SQ BEDTIME 09/06/19 insulin aspart U-100 [Novolog 30 units SQ TID 09/06/19 U-100 Insulin aspart] ipratropium-albuterol 3 ml INHALATION Q4H PRN 09/06/19 clindamycin HCl 300 mg PO Q8HR 5 Days #30 cap 09/08/19 fluconazole 200 mg PO ONCE #2 tab 09/08/19 nicotine 1 patch TRANSDERMAL DAILY 30 Days 09/08/19 #30 each Lab/Diagnostics: glu 272.9 hgbA1c 10.59 wbc 11.84 H/H 15.4/48.3 plt [id number] bp 154/83 P84 R18 T98.4 sat 93% O2 nc Education Provided to Patient and Family: complete all abx even if she feels better eat smaller portions and reduce carbohydrate intake continue to try to quit smoking Follow-ups: f/u PCP 5-7 days Discharge Disposition: Home Hospital Course: Pt admitted for treatment of abscess/cellulitis to gluteal fold near rectum. I&D performed in ED without much return of purulent drainage. area too small to pack. Pt with wbc >16 on admission but no fever. Received ancef x 1 IV in ED; continued on IV clindamycin 600mg BID in house. wbc down to 11.84 and no fever at time of discharge. Pt with c/o soreness to the area but had not requested anything for pain during her stay after receiving morphine and dilaudid in ED during I&D. Pts diabetes noted to be uncontrolled. pts jardiance, trajenta, and metformin were held. she was continued on her home lantus dose and covered with sliding scale insulin. values remained in the 300s which pt states is usual for her at home as well. pt was experiencing mild exarcerbation with her COPD. she continued on home dose of oxygen 2lpm nasal cannula and received albuterol HFA. no nebs as no aerolization during covid10 pandemic per CDC guidelines. pt felt her breathing was at baseline at the time of discharge has hx CAD/stents. had no complaint of chest pain, worsening shortness of breath, [place]. Pt continued to use her trilogy for ALLISON and was continued on her daily bipolar disorder medications. she had appropriate affect and mood and no report of EULA/hallucinations. Pt also noted to have intertrigonal candidiasis multiple areas related to her girth. nystatin powder applied. discussed keeping areas dry with OTC products such as minipads, etc. pt released with eprescribed clindamycin and nicotine patch. she had no other changes to her home medication regimen.
[2019-09-08] MEDS ORDERED: CLEOCIN PO SCH (13:00)
[2019-09-15] MEDS ORDERED: DIFLUCAN PO ONE (08:00)
== END 2019-09-08 09:13 | disposition home or self-care (01) ==
LOC: ED 17:43 → MEDSURG B 17:43
PROVIDERS: ADMIT Nurse Practitioner Family; ATTEND Nurse Practitioner Family